=== PATIENT | male | born 1940 | race Caucasian/White ===

== ENCOUNTER → 2017-03-10 | Outpatient (CLI) | payer MEDICARE, BC ==
[~2017-03-10] MED LIST: ASPI81CH6 CHEW; METO50TA PO; OMEP40CA2 PO
[2017-03-10 13:46] LABS: AUTOMATED NEUTROPHIL # 3.7 TH/MM3 (1.8-7.7); BASOPHIL % 0.4 % (0.0-2.0); EOSINOPHIL # 0.1 TH/MM3 (0-0.4); EOSINOPHIL % 1.1 % (0.0-4.0); HEMATOCRIT 42.8 % (39.0-51.0); HEMOGLOBIN 14.4 GM/DL (13.0-17.0); LYMPH % 30.5 % (9.0-44.0); MEAN CELL VOLUME 86.9 FL (80.0-100.0); MEAN CORPUSCULAR HEMOGLOBIN 29.2 PG (27.0-34.0); MEAN CORPUSCULAR HGB CONC 33.6 % (32.0-36.0); MONO % 11.9 % (0.0-8.0); MONOCYTE # 0.8 TH/MM3 (0-0.9); NEUT % 56.1 % (16.0-70.0); PLATELET COUNT 143 TH/MM3 (150-450); RED BLOOD COUNT 4.93 MIL/MM3 (4.50-5.90); RED CELL DISTRIBUTION WIDTH 14.9 % (11.6-17.2); WHITE BLOOD COUNT 6.6 TH/MM3 (4.0-11.0)
[2017-03-10 14:08] LABS: ALBUMIN 3.9 GM/DL (3.4-5.0); ALT (GPT) 29 U/L (12-78); AST (GOT) 21 U/L (15-37); BICARBONATE 32.5 MEQ/L (21.0-32.0); BLOOD UREA NITROGEN 27 MG/DL (7-18); CALCIUM 9.3 MG/DL (8.5-10.1); CHLORIDE 103 MEQ/L (98-107); CHOLESTEROL 194 MG/DL (120-200); CREATININE 0.83 MG/DL (0.60-1.30); GLOMERULAR FILTRATION RATE 90 ML/MIN (>89); GLUCOSE,FASTING 99 MG/DL (74-99); SODIUM (NA) 140 MEQ/L (136-145)
[2017-03-10 14:10] LABS: ALKALINE PHOSPHATASE 74 U/L (45-117); CHOLESTEROL/ HDL RATIO 2.14 RATIO; HDL CHOLESTEROL 90.5 MG/DL (40.0-60.0); LDL CHOLESTEROL 95 MG/DL (0-99); TOTAL BILIRUBIN ADULT 0.5 MG/DL (0.2-1.0); TOTAL PROTEIN 7.8 GM/DL (6.4-8.2); TRIGLYCERIDES 44 MG/DL (42-150)
[2017-03-10 16:58] LABS: HEMOGLOBIN A1C 6.3 % (4.3-6.0)
== END ==
LOC: PLAB 11:21
PROVIDERS: ATTEND Family Medicine
DX: K21.9 Gastro-esophageal reflux disease without esophagitis (principal); I10 Essential (primary) hypertension; R73.9 Hyperglycemia, unspecified; Z12.5 Encounter for screening for malignant neoplasm of prostate
CPT/HCPCS: 36415; 80053; 80061; 82306; 83036; 85025; G0103

== ENCOUNTER 2017-09-03 14:27 | Inpatient (IN) ==
[2017-09-03] MEDS ORDERED: Acetaminophen 325 MG Tablet PO ONE (16:37)
[2017-09-03 17:08] LABS: Baso # (Auto) 0.1 th/mm3 (0.0-0.2); Baso % (Auto) 0.3 % (0.0-2.0); Eos % (Auto) 0.2 % (0.0-4.0); Hematocrit 39.4 % (39.0-51.0); Hemoglobin 13.5 gm/dL (13.0-17.0); Lymph # (Auto) 1.7 th/mm3 (1.0-4.8); Lymph % (Auto) 8.8 % (9.0-44.0); Mean Corpuscular HGB Conc 34.3 % (32.0-36.0); Mean Corpuscular Hemoglobin 29.6 pg (27.0-34.0); Mean Corpuscular Volume 86.4 fL (80.0-100.0); Mean Platelet Volume 9.8 fL (7.0-11.0); Mono # (Auto) 1.7 th/mm3 (0.0-0.9); Mono % (Auto) 8.6 % (0.0-8.0); Neut # (Auto) 16.1 th/mm3 (1.8-7.7); Neut % (Auto) 82.1 % (16.0-70.0); Platelet Count 175 th/mm3 (150-450); Red Blood Count 4.56 mil/mm3 (4.50-5.90); Red Cell Distribution Width 14.6 % (11.6-17.2); White Blood Count 19.6 th/mm3 (4.0-11.0)
--- NOTE | 2017-09-03 17:08 | ED ---
HPI General Chief complaint: Silver Buffer Problem Stated complaint: possible infection Right foot Time Seen by Provider: 09/03/17 16:13 Source: patient Mode of arrival: ambulatory Limitations: no limitations History of Present Illness HPI narrative: 77-year-old male presents emergency department for evaluation of fever and nausea started yesterday. His assists with a history. states that patient remained in bed this morning after she returned from tenriism and she became concerned. Patient had a foot surgery [address] Esposito and they were advised to return to the emergency department if he develops a fever. Patient had a joint replacement for "arthritis". Since yesterday, patient reports a subjective fever and urinary frequency. Says he has been urinating about every hour. He denies chest pain, shortness breath, abdominal pain, and vomiting, diarrhea, constipation. He says that he was placed on antibiotics for his foot and yesterday was the last dose. He says this was a "Z-Antony" and proceeds to describe the prednisone Medrol dose pack. Says he took a full 6 day course. His medical history significant for hypertension. Denies cardiac or pulmonary issues. Related Data Home Medications Medication Instructions Recorded Confirmed Aspir-81 1 tab PO DAILY 09/03/17 09/03/17 Lantoprost 09/03/17 metoprolol succinate 50 mg PO BID 09/03/17 09/03/17 omeprazole 40 mg PO DAILY 09/03/17 09/03/17 Allergies Allergy/AdvReac Type Severity Reaction Status Date / Time clindamycin Allergy Mild Unverified 11/16/16 11:00 penicillin G Allergy Mild rash Unverified 11/16/16 11:00 Review of Systems Except as stated in HPI: all other systems reviewed are negative PMFSH Medical History Medical History Hypertension (Acute) Social History Social History Substance History: No History of Abuse Second Hand Smoke Exposure: No Smoking Status: Never smoker How Often Do You Have a Drink Containing Alcohol: 4 or more times a week Recent Travel in [facility] within the Last 8 Weeks: No Recent Out of Country Travel within the Last 8 Weeks: No Immunization History Tetanus Immunization: Unsure Hx Influenza Vaccine This Season: Yes Exam Narrative Exam Narrative: GENERAL: Well-developed well-nourished in no apparent distress, resting comfortably but SKIN: Focused skin assessment warm/dry. Left foot- sutures in place without obvious dehiscence, no exudate or discharge , mild erythema surrounding the sutures without evidence of cellulitis. Bounding pedal pulses. Neurovascularly intact HEAD: Atraumatic. Normocephalic. EYES: Pupils equal and round. No scleral icterus. No injection or drainage. ENT: No nasal bleeding or discharge. Mucous membranes pink and moist. NECK: Trachea midline. No JVD. No lymphadenopathy CARDIOVASCULAR: Regular rate and rhythm. No murmur appreciated. RESPIRATORY: No accessory muscle use. Clear to auscultation. Breath sounds equal bilaterally. GASTROINTESTINAL: Abdomen soft, non-tender, nondistended. Hepatic and splenic margins not palpable. No CVA tenderness. MUSCULOSKELETAL: No obvious deformities. No clubbing. No cyanosis. No edema. Homans is negative bilaterally NEUROLOGICAL: Awake and alert. No obvious cranial nerve deficits. Motor grossly within normal limits. Normal speech. PSYCHIATRIC: Appropriate mood and affect; insight and judgment normal. Course Reevaluation(s) Reevaluation #1: patient updated and agrees to admit Consultations Consultation #1: dr whaley agrees to admit Initial Documented Vital Signs Temperature 99.3 F 09/03/17 14:34 Pulse Rate 70 09/03/17 14:34 Respiratory Rate 15 09/03/17 14:34 Blood Pressure 127/58 L 09/03/17 14:34 Pulse Oximetry 96 09/03/17 14:34 Last Documented Vital Signs Temperature 101 F H 09/03/17 18:04 Pulse Rate 64 09/03/17 16:40 Respiratory Rate 16 09/03/17 16:40 Blood Pressure 137/58 L 09/03/17 16:40 Pulse Oximetry 96 09/03/17 17:05 Medical Decision Making BERNA Attestation BERNA supervised visit: Yes Attestation: I, Dr. mora, have reviewed the advance practice practitioner's documentation and am in agreement, met with the patient face to face, made the diagnosis, and the medical decision making was done by me. *My assessment and Findings: 77-year-old male with fever and dysuria with recent surgery. Postop wound appears to be without significant signs of infection. Workup reveals leukocytosis with fever and UTI. He is in sepsis without sepsis shock. He was given Zosyn and will be monitored overnight. MDM Narrative Medical decision making narrative: 77-year-old male presents emergency department for evaluation of fever and nausea that started yesterday. Patient reports frequency of urination every 60 minutes since yesterday. Patient denies significant pain to the surgery site. Says he recently completed a course of "antibiotics" and his description was that of a Medrol Dosepak. Says his course was 6 days in duration. Says he has a follow-up with Dr. Esposito on Monday for possible suture removal. Vital signs demonstrate fever of 101, HR 60-70. Labs and imaging studies ordered for further evaluation. WBC 19.6 Lactic 1.7 UA consistent with UTI Xrays stable. Ordered antibiotics for urinary tract infection, possible developing urosepsis. I discussed this case with my attending who recommended admission for observation. Pt has fever, UTI, and leukocytosis. Questionable recent completion of antibiotics. Differential Diagnosis Differential Diagnosis: Urinary tract infection, sepsis, postop wound infection Lab Data Lab results reviewed: Yes I reviewed the patient's lab results. Result diagrams: 09/03/17 16:45 09/03/17 16:45 Lab Results 09/03/17 09/03/17 09/03/17 Range/Units 16:30 16:45 16:45 WBC 19.6 H (4.0-11.0) th/mm3 RBC 4.56 (4.50-5.90) mil/mm3 Hgb 13.5 (13.0-17.0) gm/dL Hct 39.4 (39.0-51.0) % MCV 86.4 (80.0-100.0) fL MCH 29.6 (27.0-34.0) pg MCHC 34.3 (32.0-36.0) % RDW 14.6 (11.6-17.2) % Plt Count 175 (150-450) th/mm3 MPV 9.8 (7.0-11.0) fL Neut % (Auto) 82.1 H (16.0-70.0) % Lymph % (Auto) 8.8 L (9.0-44.0) % [place] % (Auto) 8.6 H (0.0-8.0) % Eos % (Auto) 0.2 (0.0-4.0) % Baso % (Auto) 0.3 (0.0-2.0) % Neut # (Auto) 16.1 H (1.8-7.7) th/mm3 Lymph # (Auto) 1.7 (1.0-4.8) th/mm3 [place] # (Auto) 1.7 H (0.0-0.9) th/mm3 Eos # (Auto) 0.0 (0.0-0.4) th/mm3 Baso # (Auto) 0.1 (0.0-0.2) th/mm3 WBC Differential . Differential Comment Auto diff final PT (9.8-11.6) sec INR Ratio APTT (24.3-30.1) sec Sodium 136 (136-145) meq/L Potassium 4.1 (3.5-5.1) meq/L Chloride 100 (98-107) meq/L Carbon Dioxide 31.3 (21.0-32.0) meq/L Anion Gap 5 (5-15) meq/L BUN 22 H (7-18) mg/dL Creatinine 1.12 (0.60-1.30) mg/dL Estimated GFR 64 L (>89) mL/min Random Glucose 130 H (74-106) mg/dL Lactic Acid (0.4-2.0) mmol/L Calcium 8.5 (8.5-10.1) mg/dL Urine Color Amairani (Yellw/Straw) Urine Clarity Cloudy H (Clear) Urine pH 5.0 (5.0-8.5) Ur Specific [place] 1.025 (1.002-1.035) Urine Protein 100 H (Neg-Trace) mg/dL Urine Glucose (UA) Negative (Negative) mg/dL Urine Ketones Negative (Negative) mg/dL Urine Occult Blood Large H (Negative) Urine Nitrate Positive H (Negative) Urine Bilirubin Negative (Negative) Urine Urobilinogen Less than 2 (Less than 2) mg/dL Ur Leukocyte Esterase Large H (Negative) Urine RBC 75 H (0-3) /hpf Urine WBC (0-5) /hpf Urine WBC Clumps Few H (None) Ur Squamous Epith Cells <1 (0-5) /hpf Urine Bacteria Moderate H (None) /hpf Hyaline Casts 7 (0-3) /lpf Urine Mucus Few H (Occasional) /lpf Micro UA Comment Culture indicated Urine Culture Comments Culture indicated 09/03/17 09/03/17 Range/Units 16:45 16:55 WBC (4.0-11.0) th/mm3 RBC (4.50-5.90) mil/mm3 Hgb (13.0-17.0) gm/dL Hct (39.0-51.0) % MCV (80.0-100.0) fL MCH (27.0-34.0) pg MCHC (32.0-36.0) % RDW (11.6-17.2) % Plt Count (150-450) th/mm3 MPV (7.0-11.0) fL Neut % (Auto) (16.0-70.0) % Lymph % (Auto) (9.0-44.0) % [place] % (Auto) (0.0-8.0) % Eos % (Auto) (0.0-4.0) % Baso % (Auto) (0.0-2.0) % Neut # (Auto) (1.8-7.7) th/mm3 Lymph # (Auto) (1.0-4.8) th/mm3 [place] # (Auto) (0.0-0.9) th/mm3 Eos # (Auto) (0.0-0.4) th/mm3 Baso # (Auto) (0.0-0.2) th/mm3 WBC Differential Differential Comment PT 11.5 (9.8-11.6) sec INR 1.1 Ratio APTT 26.5 (24.3-30.1) sec Sodium (136-145) meq/L Potassium (3.5-5.1) meq/L Chloride (98-107) meq/L Carbon Dioxide (21.0-32.0) meq/L Anion Gap (5-15) meq/L BUN (7-18) mg/dL Creatinine (0.60-1.30) mg/dL Estimated GFR (>89) mL/min Random Glucose (74-106) mg/dL Lactic Acid 1.7 (0.4-2.0) mmol/L Calcium (8.5-10.1) mg/dL Urine Color (Yellw/Straw) Urine Clarity (Clear) Urine pH (5.0-8.5) Ur Specific [place] (1.002-1.035) Urine Protein (Neg-Trace) mg/dL Urine Glucose (UA) (Negative) mg/dL Urine Ketones (Negative) mg/dL Urine Occult Blood (Negative) Urine Nitrate (Negative) Urine Bilirubin (Negative) Urine Urobilinogen (Less than 2) mg/dL Ur Leukocyte Esterase (Negative) Urine RBC (0-3) /hpf Urine WBC (0-5) /hpf Urine WBC Clumps (None) Ur Squamous Epith Cells (0-5) /hpf Urine Bacteria (None) /hpf Hyaline Casts (0-3) /lpf Urine Mucus (Occasional) /lpf Micro UA Comment Urine Culture Comments Imaging Data Attestation: I personally reviewed and interpreted this imaging study as follows : Radiologist's impression: Foot X-Ray 09/03/17 16:37 CONCLUSION: No acute bony abnormalities. Previous joint replacement at the second MTP. 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 Discharge Plan Discharge Disposition Patient Disposition: 30 Still Patient Discharge Condition Condition: Stable Discharge Details Diagnosis: Acute UTI, Sepsis Physicians Team ED Provider: Holli Mora ED Midlevel Provider: Kellen Gallo Primary Care Provider: Minal Rainey Attending Provider: Feli Whaley Status ED Status: Admitted Observation Patient
[2017-09-03 17:17] LABS: Bacteria,Urine Moderate /hpf; Bilirubin,Urine Negative (Negative); Clarity,Urine Cloudy (Clear); Color,Urine Amber (Yellw/Straw); Glucose,Urine (UA) Negative (Negative); Hyaline Casts,Urine 7 /lpf (0-3); Leukocyte Esterase,Urine Large (Negative); Mucus,Urine Few /lpf (Occasional); Nitrite,Urine Positive (Negative); Specific Gravity,Urine 1.025 (1.002-1.035); Squamous Epithelial Cell,Urine <1 /hpf (0-5)
[2017-09-03 17:22] LABS: Calcium 8.5 mg/dL (8.5-10.1); Carbon Dioxide 31.3 meq/L (21.0-32.0); Potassium 4.1 meq/L (3.5-5.1)
--- NOTE | 2017-09-03 17:22 | XR ---
EXAM DATE: 09/03/2017 5:02 PM EDT AGE/SEX: 77 years / Male INDICATIONS: Post op. Possible infection. CLINICAL DATA: This is the patient's subsequent encounter. Patient reports that signs and symptoms h ave been present for 4 - 6 days and indicates a pain score of 7/10. MEDICAL/SURGICAL HISTORY: None. None. COMPARISON: No prior exams available for comparison. FINDINGS: No acute fracture identified. There is a joint prosthesis at the second metatarsophalangeal joint. No bony destructive changes. No other radiopaque foreign bodies. CONCLUSION: No acute bony abnormalities. Previous joint replacement at the second MTP. Mild to moderate osteoarth ritis in the remainder of the right foot. Electronically signed by: Elias Hensley MD 09/03/2017 5:20 PM EDT
[2017-09-03] MEDS ORDERED: Sod Chloride 0.9% Inj 1,000 ML IV.SIG ONE (17:37)
[2017-09-03 17:41] LABS: Activated Partial Thrombo Time 26.5 sec (24.3-30.1); INR 1.1 Ratio; Prothrombin Time 11.5 sec (9.8-11.6)
[2017-09-03] MEDS ORDERED: Bisacodyl 10 MG Supp RECTAL PRN (20:29)
[2017-09-03] MEDS ORDERED: Temazepam 15 MG Capsule PO PRN (20:29)
[2017-09-03] MEDS: Senna/Docusate Sodium 8.6/50 MG Tablet PO SCH (20:50)
[2017-09-03] MEDS: Heparin - SQ 10,000 UNITS/ML Vial SQ SCH (20:51)
[2017-09-03] MEDS: Sod Chloride 0.9% Inj 1,000 ML IV.CONT SCH (20:51)
--- NOTE | 2017-09-03 22:24 | P.HP ---
History of Present Illness Service: [facility] Primary Care Physician: Minal Rainey MD History of Present Illness: 77-year-old male with a past medical history significant for hypertension and GERD presents to the emergency department for evaluation of a possible foot infection. 2 weeks ago, the patient had an artificial MCP joint in the right second digit and he has been concerned that he had an infection because he had nausea and vomiting this morning with a fever to 101 today. He also reports urinary frequency and burning with urination. He denies any foot pain. He is status post Medrol Dosepak which he finished on Monday. He has a leukocytosis however this is likely secondary to steroid use. UA consistent with UTI. He denies any chest pain or shortness of breath. No cough. No abdominal pain. No lateralizing signs/symptoms. Review of Systems All other systems reviewed negative except as stated in HPI [facility] - History History Provided By: Patient - Medical History Medical History: Medical History (Last Updated 09/03/17 @ 18:47 by Holli Mora MD) Hypertension - Surgical History Surgical History: Surgical History (Last Updated 09/03/17 @ 22:16 by Elizabeth Garza MD) H/O foot surgery H/O neck surgery H/O thumb surgery History of cholecystectomy History of cochlear implant History of rotator cuff surgery - Family History Family History: Family History (Last Updated 09/03/17 @ 22:17 by Elizabeth Garza MD) Other No family history of cardiac disease - Tobacco History Second Hand Smoke Exposure: No Smoking Status: Never smoker - Alcohol History How Often Do You Have a Drink Containing Alcohol: 4 or more times a week - Substance Use History Substance History: No History of Abuse - Travel History Recent Travel in the [place] Within the Last 8 Weeks: No Recent Travel Out of the Country Within the Last 8 Weeks: No - Immunization History Tetanus Immunization: Unsure Hx Influenza Vaccine This Season: Yes Medications and Allergies Active Medications: Active Medications Acetaminophen (Tylenol) 650 mg PO Q4H PRN PRN Reason: Temp > 100.4 Al Hydroxide/Mg Hydroxide (Milk Of Magnesia Liq) 30 ml PO Q12H PRN PRN Reason: Mild Constipation Bisacodyl (Dulcolax Supp) 10 mg RECTAL DAILY PRN PRN Reason: SEVERE CONSITIPATION Heparin Sodium (Porcine) (Heparin Inj) 5,000 units SQ Q8H [facility] Last Admin: 09/03/17 20:51 Dose: 5,000 units Ceftriaxone Sodium 1,000 mg/ (Sodium Chloride) 100 mls @ 200 mls/hr IV.SIG Q24H [facility] Last Admin: 09/03/17 20:51 Dose: 200 mls/hr Sodium Chloride (Ns Inj) 1,000 mls @ 100 mls/hr IV.CONT .Q10H [facility] Last Admin: 09/03/17 20:51 Dose: 100 mls/hr Lactulose (Lactulose Liq) 30 ml PO DAILY PRN PRN Reason: SEVERE CONSITIPATION Metoprolol Succinate (Toprol Xl) 50 mg PO BID [facility] Last Admin: 09/03/17 20:51 Dose: 50 mg Ondansetron HCl (Zofran Odt) 4 mg PO Q6H PRN PRN Reason: NAUSEA OR VOMITING Pantoprazole Sodium (Protonix) 40 mg PO DAILY [facility] Senna/Docusate Sodium (Sharri-Colace) 1 tab PO BID [facility] Last Admin: 09/03/17 20:50 Dose: 1 tab Sennosides (Senokot) 17.2 mg PO Q12H PRN PRN Reason: Moderate Constipation Temazepam (Restoril) 15 mg PO HS PRN PRN Reason: INSOMNIA Allergies Allergy/AdvReac Type Severity Reaction Status Date / Time clindamycin Allergy Mild Unverified 11/16/16 11:00 penicillin G Allergy Mild rash Unverified 11/16/16 11:00 Home Medications Medication Instructions Recorded Confirmed Type Aspir-81 1 tab PO DAILY 09/03/17 09/03/17 History Lantoprost 09/03/17 History metoprolol succinate 50 mg PO BID 09/03/17 09/03/17 History omeprazole 40 mg PO DAILY 09/03/17 09/03/17 History Exam Vital signs: Vital Signs 09/03/17 14:34 09/03/17 16:40 09/03/17 17:05 Temperature 99.3 F Pulse Rate 70 64 Respiratory Rate 15 16 Blood Pressure 127/58 L 137/58 L Pulse Oximetry 96 96 96 09/03/17 18:04 09/03/17 19:30 Temperature 101 F H 98.2 F Pulse Rate 68 Respiratory Rate 16 Blood Pressure 153/67 H Pulse Oximetry Intake & Output 09/03/17 09/03/1718 06:59 18:59 06:59 Output Total 600 / 600 Balance -600 / -600 Weight 97.522 kg Output: Urine 600 / 600 Narrative: Gen.: No acute distress Head: Normocephalic. Atraumatic. EENT: Pupils equal round and reactive to light. Nose without drainage. Airway intact. Throat without injection. Cardiovascular: Regular rate and rhythm. No murmurs, rubs or gallops. Respiratory: Lungs clear to auscultation bilaterally. No wheezes or rhonchi. Abdomen: Soft, nontender, nondistended. No peritoneal signs. Musculoskeletal: No gross deformities. No edema. Skin: No obvious rashes or erythema. Suture line on dorsum of the foot between first and second digits with incision clean/dry/intact and no active signs of infection. Neuro: Sensory and motor grossly intact. Cranial nerves II through XII grossly intact. Results - Labs CBC & Chem 7: 09/03/17 16:45 09/03/17 16:45 Labs: Laboratory Results - last 24 hr 09/03/17 09/03/17 09/03/17 16:30 16:45 16:45 WBC 19.6 H RBC 4.56 Hgb 13.5 Hct 39.4 MCV 86.4 MCH 29.6 MCHC 34.3 RDW 14.6 Plt Count 175 MPV 9.8 Neut % (Auto) 82.1 H Lymph % (Auto) 8.8 L [place] % (Auto) 8.6 H Eos % (Auto) 0.2 Baso % (Auto) 0.3 Neut # (Auto) 16.1 H Lymph # (Auto) 1.7 [place] # (Auto) 1.7 H Eos # (Auto) 0.0 Baso # (Auto) 0.1 WBC Differential . Differential Comment Auto diff final PT INR APTT Sodium 136 Potassium 4.1 Chloride 100 Carbon Dioxide 31.3 Anion Gap 5 BUN 22 H Creatinine 1.12 Estimated GFR 64 L Random Glucose 130 H Lactic Acid Calcium 8.5 Urine Color Amairani Urine Clarity Cloudy H Urine pH 5.0 Ur Specific [place] 1.025 Urine Protein 100 H Urine Glucose (UA) Negative Urine Ketones Negative Urine Occult Blood Large H Urine Nitrate Positive H Urine Bilirubin Negative Urine Urobilinogen Less than 2 Ur Leukocyte Esterase Large H Urine RBC 75 H Urine WBC Urine WBC Clumps Few H Ur Squamous Epith Cells <1 Urine Bacteria Moderate H Hyaline Casts 7 Urine Mucus Few H Micro UA Comment Culture indicated Urine Culture Comments Culture indicated 09/03/17 09/03/17 16:45 16:55 WBC RBC Hgb Hct MCV MCH MCHC RDW Plt Count MPV Neut % (Auto) Lymph % (Auto) [place] % (Auto) Eos % (Auto) Baso % (Auto) Neut # (Auto) Lymph # (Auto) [place] # (Auto) Eos # (Auto) Baso # (Auto) WBC Differential Differential Comment PT 11.5 INR 1.1 APTT 26.5 Sodium Potassium Chloride Carbon Dioxide Anion Gap BUN Creatinine Estimated GFR Random Glucose Lactic Acid 1.7 Calcium Urine Color Urine Clarity Urine pH Ur Specific [place] Urine Protein Urine Glucose (UA) Urine Ketones Urine Occult Blood Urine Nitrate Urine Bilirubin Urine Urobilinogen Ur Leukocyte Esterase Urine RBC Urine WBC Urine WBC Clumps Ur Squamous Epith Cells Urine Bacteria Hyaline Casts Urine Mucus Micro UA Comment Urine Culture Comments - Imaging Impressions Foot X-Ray 09/03/17 16:37 CONCLUSION: No acute bony abnormalities. Previous joint replacement at the second MTP. 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 Caprini VTE Risk Assessment Caprini VTE Risk Assessment: Moderate/High Risk (score >= 2) Caprini Risk Assessment Model: Point Value = 1 Point Value = 2 Point Value = 3 Point Value = 5 Age 41-60 Minor surgery BMI > 25 kg/m2 Swollen legs Varicose veins or History of unexplained or recurrent spontaneous Oral contraceptives or hormone replacement Sepsis (< 1 month) Serious lung disease, including pneumonia (< 1 month) Abnormal pulmonary function Acute myocardial infarction Congestive heart failure (< 1 month) History of inflammatory bowel disease Medical patient at bed rest Age 61-74 Arthroscopic surgery Major open surgery (> 45 min) Laparoscopic surgery (> 45 min) Malignancy Confined to bed (> 72 hours) Immobilizing plaster cast Central venous access Age >= 75 History of VTE Family history of VTE Factor V Leiden Prothrombin [id number] Lupus anticoagulant Anticardiolipin antibodies Elevated serum homocysteine Heparin-induced thrombocytopenia Other congenital or acquired thrombophilia Stroke (< 1 month) Elective arthroplasty Hip, pelvis, or leg fracture Acute spinal cord injury (< 1 month) Prophylaxis Regimen: Total Risk Factor Score Risk Level Prophylaxis Regimen 0-1 Low Early ambulation 2 Moderate Order ONE of the following: *Sequential Compression Device (SCD) *Heparin 5000 units SQ BID 3-4 Higher Order ONE of the following medications: *Heparin 5000 units SQ TID *Enoxaparin/Lovenox 40 mg SQ daily (WT < 150 kg, CrCl > 30 mL/min) *Enoxaparin/Lovenox 30 mg SQ daily (WT < 150 kg, CrCl > 10-29 mL/min) *Enoxaparin/Lovenox 30 mg SQ BID (WT < 150 kg, CrCl > 30 mL/min) AND/OR *Sequential Compression Device (SCD) 5 or more Highest Order ONE of the following medications: *Heparin 5000 units SQ TID (Preferred with Epidurals) *Enoxaparin/Lovenox 40 mg SQ daily (WT < 150 kg, CrCl > 30 mL/min) *Enoxaparin/Lovenox 30 mg SQ daily (WT < 150 kg, CrCl > 10-29 mL/min) *Enoxaparin/Lovenox 30 mg SQ BID (WT < 150 kg, CrCl > 30 mL/min) AND *Sequential Compression Device (SCD) Assessment and Plan - Plan Assessment/plan: 1. Urinary tract infection/sepsis UA consistent with UTI Urine cultures pending Blood cultures pending Rocephin 2. Hypertension/GERD Continue home medications FEN Heart healthy diet Electrolytes: Monitor and replete as needed Heparin
[2017-09-04 02:30] LABS: Baso % (Auto) 0.1 % (0.0-2.0); Hematocrit 38.9 % (39.0-51.0); Hemoglobin 13.2 gm/dL (13.0-17.0); Lymph # (Auto) 0.9 th/mm3 (1.0-4.8); Lymph % (Auto) 5.1 % (9.0-44.0); Mean Corpuscular Hemoglobin 29.5 pg (27.0-34.0); Mean Platelet Volume 9.7 fL (7.0-11.0); Mono # (Auto) 1.9 th/mm3 (0.0-0.9); Mono % (Auto) 10.4 % (0.0-8.0); Neut % (Auto) 84.4 % (16.0-70.0); Platelet Count 160 th/mm3 (150-450); Red Blood Count 4.47 mil/mm3 (4.50-5.90); Red Cell Distribution Width 14.5 % (11.6-17.2); White Blood Count 17.8 th/mm3 (4.0-11.0)
[2017-09-04 02:50] LABS: Calcium 8.6 mg/dL (8.5-10.1); Carbon Dioxide 28.4 meq/L (21.0-32.0)
[2017-09-04] MEDS: Heparin - SQ 10,000 UNITS/ML Vial SQ SCH ×3 (06:00→21:52)
[2017-09-04] MEDS: Sod Chloride 0.9% Inj 1,000 ML IV.CONT SCH (06:01)
[2017-09-04] MEDS: Senna/Docusate Sodium 8.6/50 MG Tablet PO SCH ×2 (08:31→21:53)
--- NOTE | 2017-09-04 12:57 | P.PNIM ---
Subjective Interval history: Patient reports he is feeling much better. Dysuria resolved. Afebrile. Physical Exam Vital signs: Vital Signs 09/03/17 14:34 09/03/17 16:40 09/03/17 17:05 Temperature 99.3 F Pulse Rate 70 64 Respiratory Rate 15 16 Blood Pressure 127/58 L 137/58 L Pulse Oximetry 96 96 96 09/03/17 18:04 09/03/17 19:30 09/04/17 00:00 Temperature 101 F H 98.2 F 98.7 F Pulse Rate 68 85 Respiratory Rate 16 20 Blood Pressure 153/67 H 140/65 Pulse Oximetry 93 L 09/04/17 00:20 09/04/17 08:00 Temperature 99.6 F Pulse Rate 84 70 Respiratory Rate 18 Blood Pressure 162/70 H Pulse Oximetry 94 L Intake & Output 09/03/17 09/04/17 09/04/17 18:59 06:59 18:59 Intake Total 1240 / 1240 Output Total 650 / 650 Balance 590 / 590 Weight 97.522 kg Intake: IV 1000 / 1000 NS Inj 1,000 ML @ 100 mls/hr IV 1000 / 1000 .CONT .Q10H [facility] Rx#:[id number] Oral 240 / 240 Output: Urine 600 / 600 Emesis 50 / 50 Other: # Voids 1 Narrative: GENERAL: This is a well-nourished, well-developed patient, in no apparent distress. CARDIOVASCULAR: Normal rate and regular rhythm without murmurs, gallops, or rubs. RESPIRATORY: Good respiratory efforts. Breath sounds equal and clear to auscultation bilaterally. GASTROINTESTINAL: Abdomen soft, non-tender, non-distended. Normal active bowel sounds MUSCULOSKELETAL: Extremities without cyanosis, or edema. NEURO: Alert & Oriented x4 to person, place, time, situation. Moves all ext x4 PSYCH: Appropriate mood and affect. Results - Labs CBC & Chem 7: 09/04/17 02:00 09/04/17 02:00 Laboratory Results - last 24 hr 09/03/17 09/03/17 09/03/17 16:30 16:45 16:45 WBC 19.6 H RBC 4.56 Hgb 13.5 Hct 39.4 MCV 86.4 MCH 29.6 MCHC 34.3 RDW 14.6 Plt Count 175 MPV 9.8 Neut % (Auto) 82.1 H Lymph % (Auto) 8.8 L [place] % (Auto) 8.6 H Eos % (Auto) 0.2 Baso % (Auto) 0.3 Neut # (Auto) 16.1 H Lymph # (Auto) 1.7 [place] # (Auto) 1.7 H Eos # (Auto) 0.0 Baso # (Auto) 0.1 WBC Differential . Differential Comment Auto diff final PT INR APTT Sodium 136 Potassium 4.1 Chloride 100 Carbon Dioxide 31.3 Anion Gap 5 BUN 22 H Creatinine 1.12 Estimated GFR 64 L Random Glucose 130 H Lactic Acid Calcium 8.5 Urine Color [place] Urine Clarity Cloudy H Urine pH 5.0 Ur Specific [place] 1.025 Urine Protein 100 H Urine Glucose (UA) Negative Urine Ketones Negative Urine Occult Blood Large H Urine Nitrate Positive H Urine Bilirubin Negative Urine Urobilinogen Less than 2 Ur Leukocyte Esterase Large H Urine RBC 75 H Urine WBC Urine WBC Clumps Few H Ur Squamous Epith Cells <1 Urine Bacteria Moderate H Hyaline Casts 7 Urine Mucus Few H Micro UA Comment Culture indicated Urine Culture Comments Culture indicated 09/03/17 09/03/17 09/04/17 16:45 16:55 02:00 WBC 17.8 H RBC 4.47 L Hgb 13.2 Hct 38.9 L MCV 87.0 MCH 29.5 MCHC 34.0 RDW 14.5 Plt Count 160 MPV 9.7 Neut % (Auto) 84.4 H Lymph % (Auto) 5.1 L [place] % (Auto) 10.4 H Eos % (Auto) 0.0 Baso % (Auto) 0.1 Neut # (Auto) 15.0 H Lymph # (Auto) 0.9 L [place] # (Auto) 1.9 H Eos # (Auto) 0.0 Baso # (Auto) 0.0 WBC Differential . Differential Comment Auto diff final PT 11.5 INR 1.1 APTT 26.5 Sodium Potassium Chloride Carbon Dioxide Anion Gap BUN Creatinine Estimated GFR Random Glucose Lactic Acid 1.7 Calcium Urine Color Urine Clarity Urine pH Ur Specific [place] Urine Protein Urine Glucose (UA) Urine Ketones Urine Occult Blood Urine Nitrate Urine Bilirubin Urine Urobilinogen Ur Leukocyte Esterase Urine RBC Urine WBC Urine WBC Clumps Ur Squamous Epith Cells Urine Bacteria Hyaline Casts Urine Mucus Micro UA Comment Urine Culture Comments 09/04/17 02:00 WBC RBC Hgb Hct MCV MCH MCHC RDW Plt Count MPV Neut % (Auto) Lymph % (Auto) [place] % (Auto) Eos % (Auto) Baso % (Auto) Neut # (Auto) Lymph # (Auto) [place] # (Auto) Eos # (Auto) Baso # (Auto) WBC Differential Differential Comment PT INR APTT Sodium 139 Potassium 4.0 Chloride 103 Carbon Dioxide 28.4 Anion Gap 8 BUN 23 H Creatinine 0.95 Estimated GFR 77 L Random Glucose 115 H Lactic Acid Calcium 8.6 Urine Color Urine Clarity Urine pH Ur Specific [place] Urine Protein Urine Glucose (UA) Urine Ketones Urine Occult Blood Urine Nitrate Urine Bilirubin Urine Urobilinogen Ur Leukocyte Esterase Urine RBC Urine WBC Urine WBC Clumps Ur Squamous Epith Cells Urine Bacteria Hyaline Casts Urine Mucus Micro UA Comment Urine Culture Comments - Imaging Impressions Foot X-Ray 09/03/17 16:37 CONCLUSION: No acute bony abnormalities. Previous joint replacement at the second MTP. 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 Assessment and Plan - Plan 77-year-old male admitted with sepsis secondary to UTI: Sepsis secondary to UTI: Urine growing gram-negative rods: -Continue Rocephin. Follow blood and urine cultures. -Volume status adequate. Discontinue IV fluid. Hypertension/GERD Continue home medications
[2017-09-05] MEDS: Heparin - SQ 10,000 UNITS/ML Vial SQ SCH (04:25)
[2017-09-05 05:03] LABS: Baso % (Auto) 0.3 % (0.0-2.0); Eos % (Auto) 0.3 % (0.0-4.0); Hematocrit 37.8 % (39.0-51.0); Hemoglobin 12.5 gm/dL (13.0-17.0); Lymph # (Auto) 1.8 th/mm3 (1.0-4.8); Lymph % (Auto) 16.7 % (9.0-44.0); Mean Corpuscular HGB Conc 33.2 % (32.0-36.0); Mean Corpuscular Hemoglobin 29.1 pg (27.0-34.0); Mean Corpuscular Volume 87.8 fL (80.0-100.0); Mean Platelet Volume 9.7 fL (7.0-11.0); Mono # (Auto) 1.6 th/mm3 (0.0-0.9); Mono % (Auto) 14.9 % (0.0-8.0); Neut # (Auto) 7.3 th/mm3 (1.8-7.7); Neut % (Auto) 67.8 % (16.0-70.0); Platelet Count 133 th/mm3 (150-450); Red Cell Distribution Width 14.7 % (11.6-17.2); White Blood Count 10.7 th/mm3 (4.0-11.0)
[2017-09-05] MEDS: Senna/Docusate Sodium 8.6/50 MG Tablet PO SCH ×2 (08:21→20:17)
--- NOTE | 2017-09-05 10:18 | P.PNIM ---
Subjective Interval history: Patient is having hematuria, fever this morning. He reports that he is feeling worse overall. Having dysuria. Nausea this morning. Physical Exam Vital signs: Vital Signs 09/04/17 12:00 09/04/17 16:00 09/04/17 20:00 Temperature 98.3 F 98.2 F 99.9 F H Pulse Rate 73 67 71 Respiratory Rate 18 18 18 Blood Pressure 132/64 142/67 H 133/76 Pulse Oximetry 94 L 94 L 95 09/05/17 00:00 09/05/17 04:00 09/05/17 08:00 Temperature 98.0 F 98.8 F 101.5 F H Pulse Rate 71 133 H 72 Respiratory Rate 18 20 17 Blood Pressure 158/72 H 132/63 134/77 Pulse Oximetry 95 92 L 95 Intake & Output 09/04/17 09/05/17 09/05/17 18:59 06:59 18:59 Intake Total 1800 / 1800 1100 / 1100 Output Total 800 / 800 950 / 950 Balance 1000 / 1000 -950 / -950 1100 / 1100 Intake: IV 1100 / 1100 Rocephin Inj 1,000 MG In NS Inj 100 / 100 100 ML @ 200 mls/hr IV.SIG Q24H [facility] Rx#:[id number] Oral 800 / 800 Other 1000 / 1000 Output: Urine 800 / 800 950 / 950 Other: Other Intake Source Saline Solution Date of Last Bowel Movement 09/03/17 Narrative: GENERAL: This is a well-nourished, well-developed patient, in no acute distress. CARDIOVASCULAR: Normal rate and regular rhythm without murmurs, gallops, or rubs. RESPIRATORY: Good respiratory efforts. Breath sounds equal and clear to auscultation bilaterally. GASTROINTESTINAL: Abdomen soft, non-tender, non-distended. Normal active bowel sounds MUSCULOSKELETAL: Extremities without cyanosis, or edema. NEURO: Alert & Oriented x4 to person, place, time, situation. Moves all ext x4 PSYCH: Appropriate mood and affect. Results - Labs CBC & Chem 7: 09/05/17 04:35 09/04/17 02:00 Laboratory Results - last 24 hr 09/03/17 09/05/17 16:30 04:35 WBC 10.7 RBC 4.30 L Hgb 12.5 L Hct 37.8 L MCV 87.8 MCH 29.1 MCHC 33.2 RDW 14.7 Plt Count 133 L MPV 9.7 Neut % (Auto) 67.8 Lymph % (Auto) 16.7 [place] % (Auto) 14.9 H Eos % (Auto) 0.3 Baso % (Auto) 0.3 Neut # (Auto) 7.3 Lymph # (Auto) 1.8 [place] # (Auto) 1.6 H Eos # (Auto) 0.0 Baso # (Auto) 0.0 WBC Differential . Differential Comment Auto diff final Urine Color Amairani Urine Clarity Cloudy H Urine pH 5.0 Ur Specific [place] 1.025 Urine Protein 100 H Urine Glucose (UA) Negative Urine Ketones Negative Urine Occult Blood Large H Urine Nitrate Positive H Urine Bilirubin Negative Urine Urobilinogen Less than 2 Ur Leukocyte Esterase Large H Urine RBC 75 H Urine WBC Urine WBC Clumps Few H Ur Squamous Epith Cells <1 Urine Bacteria Moderate H Hyaline Casts 7 Urine Mucus Few H Micro UA Comment Culture indicated Urine Culture Comments Culture indicated Microbiology 09/03/17 16:30 Clean Catch Urine Urine Culture - Final Escherichia coli Assessment and Plan - Assessment (1) Sepsis Code(s): A41.9 - Sepsis, unspecified organism Status: Acute (2) Hematuria Code(s): R31.9 - Hematuria, unspecified Status: Acute (3) Acute UTI Code(s): N39.0 - Urinary tract infection, site not specified Status: Acute - Plan 77-year-old male admitted with sepsis secondary to UTI: Sepsis secondary to UTI: Urine grew E. Coli: -Continue Rocephin. Follow blood cultures. -Continue IVF Hematuria: ?Related to UTI as above. He has had recurrent UTIs - Consult Urology - Monitor for clots - Obtain Renal, bladder ultrasound - Hold heparin he was getting for DVT prophylaxis. Hypertension/GERD Continue home medications GI prophylaxis: Stool softener PRN constipation. DVT PPx: SCDs, heparin on hold due to hematuria. (1) Sepsis Qualifiers: Sepsis type: sepsis due to unspecified organism Qualified Code(s): A41.9 - Sepsis, unspecified organism
--- NOTE | 2017-09-05 11:22 | US ---
EXAM DATE: 09/05/2017 10:26 AM EDT AGE/SEX: 77 years / Male INDICATIONS: Hematuria. CLINICAL DATA: This is the patient's initial encounter. Patient reports that signs and symptoms have been present for 1 week and indicates a pain score of 2/10. MEDICAL/SURGICAL HISTORY: Hypertension. Cholecystectomy. Foot surgery. Neck surgery. Thumb surg verna. Cochlear implant. Rotator cuff surgery. COMPARISON: [facility], CT INJECTION SI JOINT, UNILATERAL (CT GUIDED), 09/23/2016. . MEASUREMENTS: Right Kidney:__11.0 x 5.3 x 5.6 cm Left Kidney:__11.3 x 4.9 x 6.5 cm FINDINGS: Right Kidney: Normal echotexture and cortical thickness. No mass or hydronephrosis. Left Kidney: Normal echotexture and cortical thickness. No solid mass or hydronephrosis. A small cyst measuring 1 cm. Bladder: Within normal limits given the degree of distension. Other: None. CONCLUSION: 1. No renal calculi or solid masses. 2. Small simple cyst in left kidney. Electronically signed by: Bari Carrillo MD 09/05/2017 11:21 AM EDT
[2017-09-05] MEDS: Sodium Chloride 0.45 % Inj 1,000 ML IV.CONT SCH ×2 (11:27→20:13)
[2017-09-05] MEDS: Acetaminophen 325 MG Tablet PO PRN ×2 (12:40→20:16)
--- NOTE | 2017-09-05 17:56 | P.CONURO ---
History of Present Illness Service: urology Consult date: 09/05/17 Reason for Consult: uti, hematuria Primary Care Provider: Minal Rainey MD Chief Complaint: uti, hematuria History of Present Illness: 77yo male admitted for UTI and hematuria seen in consultation. Patient reports he has had several episodes of signficant hematuria as well dysuria. Patient reports the hematuria has been intermittent. He has had fevers as high as 101 since admit. He denies any significant lower urinary tract symptoms, however was following with urology up [place] prior to moving here. He is currently doing well, reports no issues voiding at this time. Hematuria appears to be clearing up. Review of Systems All other systems reviewed negative except as stated in HPI Constitutional: Denies anorexia, Denies chills Eyes: Denies double vision Ears, Nose, Mouth, and Throat: Denies abnormal hearing Cardiovascular: Denies chest pain, Denies fainting, Denies irregular heart rhythm Respiratory: Denies chest congestion, Denies cough, Denies shortness of breath Gastrointestinal: Denies abdominal pain Genitourinary: Reports blood in urine Musculoskeletal: Denies back pain, Denies body aches Skin/Breast: Denies bleeding lesions Neurologic: Denies abnormal hearing Endocrine: Denies increased urination PMFSH - History History Provided By: Patient, Medical Record - Medical / Surgical Hx Neg / Unobtainable Medical Problems Denied: Yes - Medical History Medical History: Medical History (Last Reviewed 09/03/17 @ 22:33 by Reyna Fairchild RN) Hypertension - Surgical History Surgical History: Surgical History (Last Reviewed 09/03/17 @ 22:33 by Reyna Fairchild RN) H/O foot surgery H/O neck surgery H/O thumb surgery History of cholecystectomy History of cochlear implant History of rotator cuff surgery - Family History Family History: Family History (Last Updated 09/03/17 @ 22:17 by Elizabeth Garza MD) Other No family history of cardiac disease - Tobacco History Second Hand Smoke Exposure: Yes Smoking Status: Never smoker - Alcohol History How Often Do You Have a Drink Containing Alcohol: 2 to 4 times a month - Substance Use History Substance History: No History of Abuse - Travel History Recent Travel in the [place] Within the Last 8 Weeks: No Recent Travel Out of the Country Within the Last 8 Weeks: No - Immunization History Tetanus Immunization: Unsure Hx Influenza Vaccine This Season: Yes Medications and Allergies Active Medications: Active Medications Acetaminophen (Tylenol) 650 mg PO Q4H PRN PRN Reason: Temp > 100.4 Last Admin: 09/05/17 12:40 Dose: 650 mg Al Hydroxide/Mg Hydroxide (Milk Of Magnesia Liq) 30 ml PO Q12H PRN PRN Reason: Mild Constipation Bisacodyl (Dulcolax Supp) 10 mg RECTAL DAILY PRN PRN Reason: SEVERE CONSITIPATION Heparin Sodium (Porcine) (Heparin Inj) 5,000 units SQ Q8H [facility] Last Admin: 09/05/17 04:25 Dose: 5,000 units Sodium Chloride (1/2 Normal Saline Inj) 1,000 mls @ 100 mls/hr IV.CONT .Q10H [facility] Last Admin: 09/05/17 11:27 Dose: 100 mls/hr Ceftriaxone Sodium 1,000 mg/ (Sodium Chloride) 100 mls @ 200 mls/hr IV.SIG Q12HR [facility] Lactulose (Lactulose Liq) 30 ml PO DAILY PRN PRN Reason: SEVERE CONSITIPATION Metoprolol Succinate (Toprol Xl) 50 mg PO BID [facility] Last Admin: 09/05/17 08:15 Dose: 50 mg Ondansetron HCl (Zofran Odt) 4 mg PO Q6H PRN PRN Reason: NAUSEA OR VOMITING Last Admin: 09/05/17 08:38 Dose: 4 mg Pantoprazole Sodium (Protonix) 40 mg PO DAILY [facility] Last Admin: 09/05/17 08:15 Dose: 40 mg Senna/Docusate Sodium (Sharri-Colace) 1 tab PO BID [facility] Last Admin: 09/05/17 08:21 Dose: Not Given Sennosides (Senokot) 17.2 mg PO Q12H PRN PRN Reason: Moderate Constipation Temazepam (Restoril) 15 mg PO HS PRN PRN Reason: INSOMNIA Allergies Allergy/AdvReac Type Severity Reaction Status Date / Time clindamycin Allergy Mild Rash Verified 09/05/17 13:54 penicillin G Allergy Mild rash Verified 09/05/17 13:54 Home Medications Medication Instructions Recorded Confirmed Type Aspir-81 1 tab PO DAILY 09/03/17 09/03/17 History Lantoprost 09/03/17 History metoprolol succinate 50 mg PO BID 09/03/17 09/03/17 History omeprazole 40 mg PO DAILY 09/03/17 09/03/17 History Physical Exam Vital Signs - 24 hr 09/04/17 20:00 09/05/17 00:00 09/05/17 04:00 Temperature 99.9 F H 98.0 F 98.8 F Pulse Rate 71 71 133 H Respiratory Rate 18 18 20 Blood Pressure 133/76 158/72 H 132/63 Pulse Oximetry 95 95 92 L 09/05/17 08:00 09/05/17 12:00 09/05/17 16:00 Temperature 101.5 F H 101.1 F H 98.1 F Pulse Rate 72 70 62 Respiratory Rate 17 18 18 Blood Pressure 134/77 157/71 H 146/63 H Pulse Oximetry 95 97 96 Physical Exam: GENERAL: This is a well-nourished, well-developed patient, in no apparent distress. SKIN: No rashes, ecchymoses or lesions. Cool and dry. HEAD: Atraumatic. Normocephalic. EYES: Extraocular motions intact. No scleral icterus. No injection or drainage. ENT: Nose without bleeding, purulent drainage. Airway patent. NECK: Trachea midline. No JVD or lymphadenopathy CARDIOVASCULAR: Normal pulse RESPIRATORY: Nonlabored GASTROINTESTINAL: Abdomen soft, non-tender, nondistended. MUSCULOSKELETAL: Extremities without clubbing, cyanosis, or edema. NEUROLOGICAL: Awake and alert. Motor and sensory grossly within normal limits. Normal speech. Lab results reviewed: Yes Laboratory Results - last 24 hr 09/05/17 04:35 WBC 10.7 RBC 4.30 L Hgb 12.5 L Hct 37.8 L MCV 87.8 MCH 29.1 MCHC 33.2 RDW 14.7 Plt Count 133 L MPV 9.7 Neut % (Auto) 67.8 Lymph % (Auto) 16.7 [place] % (Auto) 14.9 H Eos % (Auto) 0.3 Baso % (Auto) 0.3 Neut # (Auto) 7.3 Lymph # (Auto) 1.8 [place] # (Auto) 1.6 H Eos # (Auto) 0.0 Baso # (Auto) 0.0 WBC Differential . Differential Comment Auto diff final Microbiology 09/04/17 02:05 Aerobic Blood Culture - Preliminary Blood - Peripheral No growth in 1 day Anaerobic Blood Culture - Preliminary No growth in 1 day 09/04/17 02:00 Aerobic Blood Culture - Preliminary Blood - Peripheral No growth in 1 day Anaerobic Blood Culture - Preliminary No growth in 1 day 09/03/17 16:30 Urine Culture - Final Clean Catch Urine Escherichia coli Result Diagrams: 09/05/17 04:35 09/04/17 02:00 Personally reviewed images: Yes Imaging: ITS Impressions Foot X-Ray 09/03/17 16:37 CONCLUSION: No acute bony abnormalities. Previous joint replacement at the second MTP. 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 Abdomen/Bladder Ultrasound 09/05/17 00:00 CONCLUSION: 1. No renal calculi or solid masses. 2. Small simple cyst in left kidney. Assessment and Plan - Assessment (1) Acute UTI Code(s): N39.0 - Urinary tract infection, site not specified Status: Acute (2) Hematuria Code(s): R31.9 - Hematuria, unspecified Status: Acute (3) Sepsis Code(s): A41.9 - Sepsis, unspecified organism Status: Acute - Plan -Continue antibiotic per culture results -No immediate urological intervention indicated at this time -Patient may followup with urology in clinic for hematuria evaluation. Plan discussed with patient who understands and agrees with above plan -Please call with questions (3) Sepsis Qualifiers: Sepsis type: sepsis due to unspecified organism Qualified Code(s): A41.9 - Sepsis, unspecified organism
[2017-09-06] MEDS: Sodium Chloride 0.45 % Inj 1,000 ML IV.CONT SCH (07:28)
[2017-09-06 07:31] LABS: Hematocrit 37.6 % (39.0-51.0); Hemoglobin 12.5 gm/dL (13.0-17.0); Mean Corpuscular HGB Conc 33.3 % (32.0-36.0); Mean Corpuscular Hemoglobin 29.3 pg (27.0-34.0); Mean Corpuscular Volume 87.9 fL (80.0-100.0); Mean Platelet Volume 10.3 fL (7.0-11.0); Platelet Count 130 th/mm3 (150-450); Red Blood Count 4.27 mil/mm3 (4.50-5.90); Red Cell Distribution Width 15.1 % (11.6-17.2); White Blood Count 7.2 th/mm3 (4.0-11.0)
[2017-09-06 07:57] LABS: Calcium 8.2 mg/dL (8.5-10.1); Carbon Dioxide 31.9 meq/L (21.0-32.0); Potassium 3.9 meq/L (3.5-5.1)
--- NOTE | 2017-09-06 09:56 | P.DS ---
Date of admission: 09/03/17 21:34 Primary care physician: Minal Rainey MD Brief History from admission: HPI from the admitting physician 77-year-old male with a past medical history significant for hypertension and GERD presents to the emergency department for evaluation of a possible foot infection. 2 weeks ago, the patient had an artificial MCP joint in the right second digit and he has been concerned that he had an infection because he had nausea and vomiting this morning with a fever to 101 today. He also reports urinary frequency and burning with urination. He denies any foot pain. He is status post Medrol Dosepak which he finished on Monday. He has a leukocytosis however this is likely secondary to steroid use. UA consistent with UTI. He denies any chest pain or shortness of breath. No cough. No abdominal pain. No lateralizing signs/symptoms. Update on the day of discharge: 09/06/17 Patient reports he is feeling great. Hematuria completely resolved. He is requesting to go home. DS: Diagnosis - Discharge Diagnosis (1) Sepsis Status: Acute (2) Hematuria Status: Acute (3) Acute UTI Status: Acute DS: Medications - Discharge Medications Prescriptions: cefuroxime axetil 500 mg PO Q12H #8 tab DS: Summary Hospital Course: 77-year-old male admitted with sepsis secondary to UTI. Evaluation and treatment course detailed below: Sepsis secondary to UTI: Urine grew E. Coli: -Patient treated with IV Rocephin. Urine cultures grew E. coli. He is discharged on cefuroxime to complete the course of treatment. Hematuria: ?Related to UTI as above. He has had recurrent UTIs -Urology evaluated the patient. Heparin for DVT prophylaxis was discontinued. Hematuria completely resolved. -Renal and bladder ultrasound unremarkable. The patient is to follow-up with urology outpatient for further workup. Hypertension/GERD Continue home medications - Time Spent with Patient Total time spent providing and/or coordinating discharge services: Less than 30 minutes - Quality: VTE Deep Vein Thrombosis/Pulmonary Embolism Present on Admission: No Exam Vital signs: Vital Signs 09/05/17 12:00 09/05/17 16:00 09/05/17 20:00 Temperature 101.1 F H 98.1 F 100.5 F H Pulse Rate 70 62 67 Respiratory Rate Blood Pressure 157/71 H 146/63 H 155/70 H Pulse Oximetry 97 96 96 09/06/17 00:00 09/06/17 04:00 09/06/17 08:00 Temperature 97.3 F L 98.5 F 99.0 F Pulse Rate 60 60 59 L Respiratory Rate 16 16 18 Blood Pressure 124/63 151/67 H 138/65 Pulse Oximetry 98 98 94 L Intake & Output 09/05/17 09/06/17 09/06/17 18:59 06:59 18:59 Intake Total 2930 / 2930 2100 / 2100 Output Total 1949 950 / 950 Balance 980 / 980 1150 / 1150 Intake: IV 2200 / 2200 2100 / 2100 1/2 Normal Saline Inj 1,000 ML 2000 / 2000 @ 100 mls/hr IV.CONT .Q10H [facility] Rx#:[id number] Rocephin Inj 1,000 MG In NS Inj 100 / 100 100 / 100 100 ML @ 200 mls/hr IV.SIG Q12HR [facility] Rx#:[id number] Oral 730 / 730 Output: Urine 1949 950 / 950 Other: Date of Last Bowel Movement 09/03/17 Narrative: GENERAL: This is a well-nourished, well-developed patient, in no apparent distress. CARDIOVASCULAR: Normal rate and regular rhythm without murmurs, gallops, or rubs. RESPIRATORY: Good respiratory efforts. Breath sounds equal and clear to auscultation bilaterally. GASTROINTESTINAL: Abdomen soft, non-tender, non-distended. Normal active bowel sounds MUSCULOSKELETAL: Extremities without cyanosis, or edema. NEURO: Alert & Oriented x4 to person, place, time, situation. Moves all ext x4 PSYCH: Appropriate mood and affect. Results Procedures completed during hospitalization: None Labs on day of discharge: Labs from last 24 hours 09/06/17 09/06/17 06:38 06:35 WBC 7.2 RBC 4.27 L Hgb 12.5 L Hct 37.6 L MCV 87.9 MCH 29.3 MCHC 33.3 RDW 15.1 Plt Count 130 L MPV 10.3 Sodium 142 Potassium 3.9 Chloride 105 Carbon Dioxide 31.9 Anion Gap 5 BUN 9 Creatinine 0.92 Estimated GFR 80 L Random Glucose 96 Calcium 8.2 L Preliminary micro results at discharge 09/04/17 02:05 Aerobic Blood Culture - Preliminary Blood - Peripheral No growth in 1 day Anaerobic Blood Culture - Preliminary No growth in 1 day 09/04/17 02:00 Aerobic Blood Culture - Preliminary Blood - Peripheral No growth in 1 day Anaerobic Blood Culture - Preliminary No growth in 1 day - Impressions ITS Impressions Foot X-Ray 09/03/17 16:37 CONCLUSION: No acute bony abnormalities. Previous joint replacement at the second MTP. 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 Abdomen/Bladder Ultrasound 09/05/17 00:00 CONCLUSION: 1. No renal calculi or solid masses. 2. Small simple cyst in left kidney. Discharge Plan - Discharge Disposition Patient Disposition: Discharge Home - Discharge Condition Condition: Good - Discharge Order Discharge Orders: Discharge Order (Routine); Ordered 09/06/17 Ordered By: Aravind Lai - Physicians Team Primary Care Provider: Minal Rainey Attending Provider: Aravind Lai Other Providers: Keanu Nix MD
[2017-09-06] MEDS: Senna/Docusate Sodium 8.6/50 MG Tablet PO SCH (10:51)
== END 2017-09-06 11:11 | disposition home or self-care (01) ==
LOC: NEPC 14:27 → NEDA 14:27 → N07 21:33
PROVIDERS: ADMIT Family Medicine; ATTEND Family Medicine

== ENCOUNTER 2018-04-01 10:55 | Inpatient (IN) ==
[2018-04-01] MEDS ORDERED: Morphine Inj 4 MG/ML Vial IV.PUSH ONE (11:39)
--- NOTE | 2018-04-01 11:43 | ED ---
HPI General Chief Complaint: Fall Stated Complaint: fell in shower/splitting blood/hurt internally Time Seen by Provider: 04/01/18 11:31 Source: patient and family Mode of arrival: wheelchair Limitations: no limitations History of Present Illness HPI Narrative: Patient is a 77-year-old male with history of cochlear implant and hypertension, who presents with complaint of a fall. He states that he slipped and fell in the shower yesterday and struck his head and back. He had severe back and abdominal pain throughout the night with multiple episodes of nausea and vomiting. He believes the vomiting was secondary to the pain though he is not sure. He is now starting to cough up sputum with streaks of blood. He is not having any chest pain or shortness of breath. He is not on any blood thinners. He did have chills last night with malaise. MD complaint: Reports fall Onset (ago): hour(s) Fall from: standing Fall witnessed: no Place fall occurred: home Loss of consciousness: unsure Prolonged down time: no Symptoms prior to fall: Reports none Context: Reports tripped/slipped Location of injury: Reports head, back and abdomen Severity: moderate Associated symptoms (after fall): Reports other Related Data Home Medications Medication Instructions Recorded Confirmed Aspir-81 1 tab PO DAILY 09/03/17 04/01/18 Lantoprost 1 drop OPHTHALMIC (EYE) HS 09/03/17 04/01/18 metoprolol succinate 50 mg PO BID 09/03/17 04/01/18 omeprazole 40 mg PO DAILY 09/03/17 04/01/18 Alreds 1 tab PO BID 04/01/18 Tumeric 1,500 mg PO QID 04/01/18 ascorbic acid (vitamin C) [Vitamin 500 mg PO BID 04/01/18 04/01/18 C] cholecalciferol (vitamin D3) 1,000 unit PO DAILY 04/01/18 04/01/18 [Vitamin D3] coenzyme Q10 [CoQ-10] 300 mg PO DAILY 04/01/18 04/01/18 [id number] oil [[place]apa-3 1,200 mg PO DAILY 04/01/18 04/01/18 Fish Oil] tamsulosin [Flomax] 0.4 mg PO DAILY 04/01/18 04/01/18 vit [id number] [B 1 tab SUBLINGUAL 04/01/18 Complex] Allergies Allergy/AdvReac Type Severity Reaction Status Date / Time clindamycin Allergy Mild Rash Verified 04/01/18 11:18 penicillin G Allergy Mild rash Verified 04/01/18 11:18 Review of Systems ROS: all other systems reviewed are negative [facility] Medical History Medical History Hypertension (Acute) Surgical History Surgical History H/O foot surgery (Acute) H/O neck surgery (Acute) H/O thumb surgery (Acute) History of cholecystectomy (Acute) History of cochlear implant (Acute) History of rotator cuff surgery (Acute) Family History Family History Other No family history of cardiac disease Social History Social History Substance History: No History of Abuse Second Hand Smoke Exposure: No Smoking Status: Former smoker Tobacco Type: Cigarettes How Often Do You Have a Drink Containing Alcohol: 4 or more times a week Recent Travel in [facility] within the Last 8 Weeks: No Recent Out of Country Travel within the Last 8 Weeks: No Exam Narrative Exam Narrative: GENERAL: Well-appearing male whom intermittently winces in pain SKIN: Focused skin assessment warm/dry. Abrasion to the right knee. HEAD: Atraumatic. Normocephalic. EYES: Pupils equal and round. No scleral icterus. No injection or drainage. ENT: No nasal bleeding or discharge. Mucous membranes pink and moist. No intraoral lesions. NECK: Trachea midline. No JVD. CARDIOVASCULAR: Regular rate and rhythm. No murmur appreciated. Intact and equal peripheral pulses. RESPIRATORY: No accessory muscle use. Clear to auscultation. Breath sounds equal bilaterally. GASTROINTESTINAL: Abdomen soft, non-tender, nondistended. Hepatic and splenic margins not palpable. MUSCULOSKELETAL: No obvious deformities. No clubbing. No cyanosis. No edema. No C, T, L-spine tenderness though he does have tenderness to posterior ribs on both sides. NEUROLOGICAL: Awake and alert. No obvious cranial nerve deficits. Motor grossly within normal limits. Normal speech. PSYCHIATRIC: Appropriate mood and affect; insight and judgment normal. Course Initial Documented Vital Signs Temperature 98.9 F 04/01/18 11:18 Pulse Rate 84 04/01/18 11:18 Respiratory Rate 22 04/01/18 11:18 Blood Pressure 113/56 L 04/01/18 11:18 Pulse Oximetry 94 L 04/01/18 11:18 Last Documented Vital Signs Temperature 98.9 F 04/01/18 11:18 Pulse Rate 88 04/01/18 14:00 Respiratory Rate 22 04/01/18 14:00 Blood Pressure 118/53 L 04/01/18 14:00 Pulse Oximetry 96 04/01/18 14:00 Medical Decision Making MDM Narrative Medical decision making narrative: Patient is a 77-year-old male who presents with complaint of bilateral low chest upper abdominal pain. He did have a slip and fall in the shower last night. He also had chills, nausea, vomiting and hemoptysis overnight. Labs reveal a leukocytosis and thrombocytopenia. Chest x -ray is abnormal and may be contusion versus consolidation. CT head was unremarkable. C-spine does not reveal an acute fracture CT of the chest reveals right posterior rib fractures with a left lung consolidation. CT of the abdomen pelvis does not reveal any other acute findings. He has not been admitted to the hospital in the last several months. He does have a new oxygen requirement here. He has been started on Rocephin and azithromycin for his community-acquired pneumonia. He has been admitted to Dr. Iqbal, hospitalist strike operations officer, for further evaluation and management. Medical Screen Exam Complete: Yes Emergency Medical Condition: Yes Differential Diagnosis Differential Diagnosis: Differential diagnosis includes but is not limited to rib fracture, splenic injury, pulmonary contusion. Medical Records Medical records reviewed: Yes I reviewed the patient's medical records. Lab Data Lab results reviewed: Yes I reviewed the patient's lab results. Result diagrams: 04/01/18 11:50 04/01/18 11:50 Lab Results 04/01/18 04/01/18 Range/Units 11:50 11:50 WBC 16.2 H (4.0-11.0) th/mm3 RBC 4.55 (4.50-5.90) mil/mm3 Hgb 13.2 (13.0-17.0) gm/dL Hct 38.9 L (39.0-51.0) % MCV 85.5 (80.0-100.0) fL MCH 29.1 (27.0-34.0) pg MCHC 34.0 (32.0-36.0) % RDW 14.2 (11.6-17.2) % Plt Count 128 L (150-450) th/mm3 MPV 10.1 (7.0-11.0) fL Sodium 138 (136-145) meq/L Potassium 3.5 (3.5-5.1) meq/L Chloride 102 (98-107) meq/L Carbon Dioxide 29.0 (21.0-32.0) meq/L Anion Gap 7 (5-15) meq/L BUN 27 H (7-18) mg/dL Creatinine 1.20 (0.60-1.30) mg/dL Estimated GFR 59 L (>89) mL/min Random Glucose 92 (74-106) mg/dL Calcium 8.5 (8.5-10.1) mg/dL Imaging Data Attestation: I personally reviewed and interpreted this imaging study as follows : Radiologist's impression: Chest X-Ray 04/01/18 11:39 CONCLUSION: Airspace disease in the lower left lung as above. CT pending. Abdomen/Pelvis CT 04/01/18 11:40 CONCLUSION: 1. Mildly displaced right posterior 10th and 11th rib fractures without hemopneumothorax or pneumothorax. 2. Patchy airspace disease left lung base most characteristic of pneumonia or aspiration. 3. Previous cholecystectomy. Mild fatty liver. No acute traumatic injury identified within the abdomen and pelvis. Cervical Spine CT 04/01/18 11:40 CONCLUSION: 1. At C2-3 there is a left paracentral disc protrusion with left lateral recess stenosis. 2. Degenerative changes as above in the remainder of the cervical spine with previous fusion at C5-6-7 with anterior plate and screw fixation. 3. No acute fracture or spondylolisthesis. 4. Previous surgery in the left auditory canal and mastoid region with abnormal soft tissue in the area of the mastoids. Head CT 04/01/18 11:40 CONCLUSION: 1. No acute findings. Chronic moderate white matter ischemic changes. Implanted device just external to left parietal calvarium. . . Chest CT 04/01/18 11:43 CONCLUSION: 1. Mildly displaced fractures through the right 10th and 11th ribs posteriorly without pneumothorax or hemothorax. 2. Patchy airspace disease in the contralateral left lung. Primary differential diagnosis includes aspiration and pneumonia. Contusion less likely. 3. Old healed sternal fracture. No mediastinal hematoma. Lumbar Spine CT 04/01/18 11:43 CONCLUSION: 1. No acute bony abnormalities within the lumbar spine. Degenerative changes as above. Thoracic Spine CT 04/01/18 11:43 CONCLUSION: 1. Right posterior 10th and 11th rib fractures. No thoracic spine fracture or subluxation. Knee X-Ray 04/01/18 11:47 CONCLUSION: Moderate osteoarthritis. No acute bony abnormality. Discharge Plan Discharge Disposition Patient Disposition: ED Admit(ED Internal Use Only) Discharge Condition Condition: Stable Discharge Order Discharge Orders: ED Use Only Admit Order (Routine); Ordered 04/01/18 Ordered By: Margaret Palomo Discharge Details Diagnosis: Pneumonia, Hypoxia, CHI (closed head injury), Closed rib fracture Physicians Team ED Provider: Margaret Palomo Primary Care Provider: Minal Rainey Attending Provider: Huy Iqbal Discharge Interventions Interventions: Vital Signs Last Done: 04/01/18 14:00 Status ED Status: Admitted Patient
[2018-04-01 12:14] LABS: Hematocrit 38.9 % (39.0-51.0); Hemoglobin 13.2 gm/dL (13.0-17.0); Mean Corpuscular Hemoglobin 29.1 pg (27.0-34.0); Mean Corpuscular Volume 85.5 fL (80.0-100.0); Mean Platelet Volume 10.1 fL (7.0-11.0); Platelet Count 128 th/mm3 (150-450); Red Blood Count 4.55 mil/mm3 (4.50-5.90); Red Cell Distribution Width 14.2 % (11.6-17.2); White Blood Count 16.2 th/mm3 (4.0-11.0)
[2018-04-01 12:20] LABS: Potassium 3.5 meq/L (3.5-5.1)
[2018-04-01 12:23] LABS: Calcium 8.5 mg/dL (8.5-10.1)
--- NOTE | 2018-04-01 12:26 | XR ---
EXAM DATE: 04/01/2018 12:14 PM EST AGE/SEX: 77 years / Male INDICATIONS: Trauma. Fall in shower. Back pain. Coughing up blood. CLINICAL DATA: This is the patient's initial encounter. Patient reports that signs and symptoms have been present for 1 day and indicates a pain score of 7/10. MEDICAL/SURGICAL HISTORY: . Hypertension. Cholecystectomy. Foot surgery. Neck surgery. Thumb carlos rgery. Cochlear implant. Rotator cuff surgery. . COMPARISON: [facility], XR CHEST PA AND LAT, 11/16/2016. . FINDINGS: There is new airspace consolidation in the lower left lung in patient with recent history of trauma. Differential diagnosis includes lung contusion and aspiration. Cannot exclude pneumonia. CT pending. Right lung is clear. CONCLUSION: Airspace disease in the lower left lung as above. CT pending. Electronically signed by: Elias Hensley MD Board Certified Radiologist 04/01/2018 12:25 PM EST
--- NOTE | 2018-04-01 12:27 | XR ---
EXAM DATE: 04/01/2018 12:15 PM EST AGE/SEX: 77 years / Male INDICATIONS: Pain near medial side knee joint. Fall in shower. CLINICAL DATA: This is the patient's initial encounter. Patient reports that signs and symptoms have been present for 1 day and indicates a pain score of 7/10. MEDICAL/SURGICAL HISTORY: . Hypertension. Cholecystectomy. Foot surgery. Neck surgery. Thumb carlos rgery. Cochlear implant. Rotator cuff surgery. . COMPARISON: No prior exams available for comparison. FINDINGS: Bony structures are intact and in normal alignment. Moderate osteoarthritis especially at the medial joint. No significant joint effusion. CONCLUSION: Moderate osteoarthritis. No acute bony abnormality. Electronically signed by: Elias Hensley MD Board Certified Radiologist 04/01/2018 12:26 PM EST
--- NOTE | 2018-04-01 13:08 | CT ---
EXAM DATE: 04/01/2018 1:02 PM EST AGE/SEX: 77 years / Male INDICATIONS: Fell in shower last night striking head and back. Severe abdominal and back pain throug hout the night with episodes of nausea, vomiting and coughing up streaks of blood. CLINICAL DATA: This is the patient's initial encounter. Patient reports that signs and symptoms have been present for 2 days and indicates a pain score of 8/10. MEDICAL/SURGICAL HISTORY: Hypertension. Cholecystectomy. Orthopedic surgery. Neck surgery. Cochlear implant. RADIATION DOSE: 69.66 CTDI (mGy) ;Tabletop exam COMPARISON: [facility], CT TEMPORAL BONE W/O CONTRAST, BILATERAL, 10/12/2016. . TECHNIQUE: CT of the head without contrast. Using automated exposure control and adjustment of the mA and/or kV according to patient size, radiation dose was kept as low as reasonably achievable to ob tain optimal diagnostic quality images. DICOM format image data is available electronically for revi ew and comparison. FINDINGS: Cerebrum: The ventricles are normal for age. No evidence of midline shift, mass lesion, hemorrhage or acute infarction. No extraaxial fluid collections are seen. Moderate white matter ischemic change s Posterior Fossa: The cerebellum and brainstem are intact. The 4th ventricle is midline. The cerebe llopontine angle is unremarkable. Extracranial: The visualized portion of the orbits is intact. Skull: The calvaria is intact. No evidence of skull fracture. CONCLUSION: 1. No acute findings. Chronic moderate white matter ischemic changes. Implanted device just external to left parietal calvarium. . . Electronically signed by: Elias Hensley MD Board Certified Radiologist 04/01/2018 1:06 PM EST
--- NOTE | 2018-04-01 13:12 | CT ---
EXAM DATE: 04/01/2018 1:02 PM EST AGE/SEX: 77 years / Male INDICATIONS: Fell in shower last night striking head and back. Severe abdominal and back pain throug hout the night with episodes of nausea, vomiting and coughing up streaks of blood. CLINICAL DATA: This is the patient's initial encounter. Patient reports that signs and symptoms have been present for 2 days and indicates a pain score of 8/10. MEDICAL/SURGICAL HISTORY: Hypertension. Cholecystectomy. Orthopedic surgery. Neck surgery. Cochlear implant. RADIATION DOSE: 28.69 CTDI (mGy) ; Combined studies COMPARISON: No prior exams available for comparison. TECHNIQUE: Multiple contiguous axial images were obtained through the chest during bolus infusion of 95 ml Omnipaque 350 (iohexol) nonionic water-soluble contrast as a cumulative dose for multiple exa ms. Images were obtained in suspended respiration using multiple row detector helical technique. U sing automated exposure control and adjustment of the mA and/or kV according to patient size, radiati on dose was kept as low as reasonably achievable to obtain optimal diagnostic quality images. DICOM format image data is available electronically for review and comparison. FINDINGS: There is no mediastinal hematoma. No evidence for traumatic aortic injury. No pleural or pericardial effusion. There are mildly displaced fractures through the right 10th and 11th ribs posteriorly. There is no pn eumothorax. There is an old healed sternal fracture. There is patchy airspace disease throughout the left lung involving upper and lower lobes. No associa corazon rib fractures identified. Differential diagnosis includes pneumonia and aspiration. CONCLUSION: 1. Mildly displaced fractures through the right 10th and 11th ribs posteriorly without pneumothorax or hemothorax. 2. Patchy airspace disease in the contralateral left lung. Primary differential diagnosis includes a spiration and pneumonia. Contusion less likely. 3. Old healed sternal fracture. No mediastinal hematoma. Electronically signed by: Elias Hensley MD Board Certified Radiologist 04/01/2018 1:11 PM EST
--- NOTE | 2018-04-01 13:15 | CT ---
EXAM DATE: 04/01/2018 1:03 PM EST AGE/SEX: 77 years / Male INDICATIONS: Fell in shower last night striking head and back. Severe abdominal and back pain throug hout the night with episodes of nausea, vomiting and coughing up streaks of blood. CLINICAL DATA: This is the patient's initial encounter. Patient reports that signs and symptoms have been present for 2 days and indicates a pain score of 8/10. MEDICAL/SURGICAL HISTORY: Hypertension. Cholecystectomy. Orthopedic surgery. Neck surgery. Coch lear implant. ORAL CONTRAST: No oral contrast ingested. RADIATION DOSE: 28.69 CTDI (mGy) ; Combined studies COMPARISON: No prior exams available for comparison. TECHNIQUE: Multiple contiguous axial images were obtained through the abdomen and pelvis following b olus infusion of 95 ml Omnipaque 350 (iohexol) nonionic water-soluble contrast as a cumulative dose for multiple exams. No oral contrast ingested. Using automated exposure control and adjustment of t he mA and/or kV according to patient size, radiation dose was kept as low as reasonably achievable to obtain optimal diagnostic quality images. DICOM format image data is available electronically for r eview and comparison. FINDINGS: Patchy airspace disease left lung base. Mildly displaced right posterior 10th and 11th rib fractures. No acute findings in the liver, spleen, adrenals, kidneys or pancreas. Previous cholecystectomy. No free fluid. No bowel obstruction. No adenopathy. Previous cholecystectomy. Colonic diverticulosis without evidence for diverticulitis. Small hiatal hernia. CONCLUSION: 1. Mildly displaced right posterior 10th and 11th rib fractures without hemopneumothorax or pneumoth orax. 2. Patchy airspace disease left lung base most characteristic of pneumonia or aspiration. 3. Previous cholecystectomy. Mild fatty liver. No acute traumatic injury identified within the abdom en and pelvis. Electronically signed by: Elias Hensley MD Board Certified Radiologist 04/01/2018 1:14 PM EST
[2018-04-01] MEDS ORDERED: Azithromycin Inj 500 MG in Sodium Chlor 0.9% Inj 250 ML IV.SIG ONE (13:34)
--- NOTE | 2018-04-01 13:49 | CT ---
EXAM DATE: 04/01/2018 1:28 PM EST AGE/SEX: 77 years / Male INDICATIONS: Fell in shower last night striking head and back. Severe abdominal and back pain throug hout the night with episodes of nausea, vomiting and coughing up streaks of blood. CLINICAL DATA: This is the patient's initial encounter. Patient reports that signs and symptoms have been present for 2 days and indicates a pain score of 8/10. MEDICAL/SURGICAL HISTORY: Hypertension. Cholecystectomy. Orthopedic surgery. Neck surgery. Coch lear implant. RADIATION DOSE: 28.17 CTDI (mGy) COMPARISON: No prior exams available for comparison. TECHNIQUE: Contiguous axial images were obtained using helical multirow detector technique. The vol umetric data was post-processed with multiplanar reconstruction in oblique axial, sagittal, and coron al planes. Using automated exposure control and adjustment of the mA and/or kV according to patient s ize, radiation dose was kept as low as reasonably achievable to obtain optimal diagnostic quality santhosh ges. DICOM format image data is available electronically for review and comparison. FINDINGS: At C2-3 there is a left paracentral disc protrusion with left lateral recess stenosis. Also mild left foraminal stenosis. At C3-4 there is degenerative change with moderate bilateral foraminal stenosis. At C4-5 there is mild right foraminal stenosis. Facet arthropathy. No central canal stenosis. At C5-6 there is moderate bilateral foraminal stenosis. No central stenosis. At C6-7 there is mild bilateral foraminal encroachment. At C7-T1 there is no significant abnormality. Previous fusion across C5-6-7. CONCLUSION: 1. At C2-3 there is a left paracentral disc protrusion with left lateral recess stenosis. 2. Degenerative changes as above in the remainder of the cervical spine with previous fusion at C5-6 -7 with anterior plate and screw fixation. 3. No acute fracture or spondylolisthesis. 4. Previous surgery in the left auditory canal and mastoid region with abnormal soft tissue in the a kai of the mastoids. Electronically signed by: Elias Hensley MD Board Certified Radiologist 04/01/2018 1:48 PM EST
--- NOTE | 2018-04-01 13:51 | CT ---
EXAM DATE: 04/01/2018 1:31 PM EST AGE/SEX: 77 years / Male INDICATIONS: Fell in shower last night striking head and back. Severe abdominal and back pain throug hout the night with episodes of nausea, vomiting and coughing up streaks of blood. CLINICAL DATA: This is the patient's initial encounter. Patient reports that signs and symptoms have been present for 2 days and indicates a pain score of 8/10. MEDICAL/SURGICAL HISTORY: Hypertension. Cholecystectomy. Orthopedic surgery. Neck surgery. Cochlear implant. RADIATION DOSE: . CTDI (mGy) ; Reconstructed from previous dataset, no dose COMPARISON: No prior exams available for comparison. TECHNIQUE: Contiguous axial images were acquired with a multirow detector CT scanner after intraveno us administration of 95 ml Omnipaque 350 (iohexol) nonionic water-soluble contrast as a cumulative d ose for multiple exams. Multiplanar reconstructions in the sagittal and coronal plane were also perf ormed. Using automated exposure control and adjustment of the mA and/or kV according to patient size, radiation dose was kept as low as reasonably achievable to obtain optimal diagnostic quality images. DICOM format image data is available electronically for review and comparison. FINDINGS: At T12-L1 there is no significant abnormality. At L1-2 there is a mild disc protrusion with mild lateral recess stenosis. At L2-3 there is a minimal retrolisthesis and osteophytic ridging with a mild central canal and later al recess and foraminal stenosis bilaterally. At L3-4 there is a broad-based disc bulge and facet arthropathy with mild lateral recess and foramina l stenosis at At L4-5 there is a disc osteophyte complex and facet arthropathy with mild lateral recess and foramin al stenosis bilaterally. At L5-S1 there is a broad-based disc osteophyte complex and facet arthropathy with moderate bilateral foraminal stenosis. CONCLUSION: 1. No acute bony abnormalities within the lumbar spine. Degenerative changes as above. Electronically signed by: Elias Hensley MD Board Certified Radiologist 04/01/2018 1:50 PM EST
--- NOTE | 2018-04-01 13:55 | CT ---
EXAM DATE: 04/01/2018 1:34 PM EST AGE/SEX: 77 years / Male INDICATIONS: Fell in shower last night striking head and back. Severe abdominal and back pain throug hout the night with episodes of nausea, vomiting and coughing up streaks of blood. CLINICAL DATA: This is the patient's initial encounter. Patient reports that signs and symptoms have been present for 2 days and indicates a pain score of 8/10. MEDICAL/SURGICAL HISTORY: Hypertension. Cholecystectomy. Orthopedic surgery. Neck surgery. Cochlear implant. RADIATION DOSE: . CTDI (mGy) ; Reconstructed from previous dataset, no dose COMPARISON: [facility], CT CERVICAL SPINE W/O CONTRAST, 04/01/2018. . TECHNIQUE: Contiguous axial images were acquired using a multirow detector CT scanner after intraven ous administration of 95 ml Omnipaque 350 (iohexol) nonionic water-soluble contrast as a cumulative dose for multiple exams. Multiplanar reconstruction in the sagittal and coronal planes was performe d. Using automated exposure control and adjustment of the mA and/or kV according to patient size, ra diation dose was kept as low as reasonably achievable to obtain optimal diagnostic quality images. D ICOM format image data is available electronically for review and comparison. FINDINGS: No acute fracture or spondylolisthesis within the thoracic spine. No significant bony canal stenosis. Incidental note made of mildly displaced fractures right posterior 10th and 11th ribs. CONCLUSION: 1. Right posterior 10th and 11th rib fractures. No thoracic spine fracture or subluxation. Electronically signed by: Elias Hensley MD Board Certified Radiologist 04/01/2018 1:53 PM EST
[2018-04-01] MEDS: Sod Chloride 0.9% Inj 1,000 ML IV.CONT SCH (14:58)
[2018-04-01] MEDS: Lactobacillus Acidophilus/L. Spores Tablet PO SCH (17:11)
--- NOTE | 2018-04-01 17:35 | P.HPIM ---
History of Present Illness Primary Care Physician: Minal Rainey MD Chief Complaint: Fall in shower History of Present Illness: CT of the -[id number] male with known history of hypertension who presented to the emergency department for evaluation of hemoptysis status post fall in the shower. Patient states that he was in his normal state of health until this morning when he was taking a shower. He states that he slipped and he fell backwards landing on a bench in the shower across his bilateral back. Patient states that he thinks he hit his head and may have had a very quick episode of loss of consciousness. His came in and helped him back to his feet and then he started having cough with blood-streaked sputum. Because of that he came to the emergency department for evaluation. Patient had extensive radiological workup and found to have 2 displaced fracture ribs on the right 10th and 11th. CT of the chest was performed and rather impressive with completely normal lung brantley on the right however significant patchy airspace disease on the left lung which radiologist indicating aspiration and/or pneumonia, contusion less likely. However given the patient clinically presenting with the back pain, hemoptysis, hypoxia. Contusion will be higher on the differential. Patient also with findings consistent with sepsis. Leukocytosis, tachypnea, patchy airspace disease in the left lung. Patient denies any previous constitutional symptoms to include fever, chills, cough, congestion, rhinorrhea. Patient had immediate hemoptysis after fall with landing on a bench across his bilateral posterior lung. Inpatient Certification Inpatient Certification: I certify that the inpatient services were ordered in accordance with Medicare regulations governing the order. This includes certification that hospital inpatient services are reasonable and necessary and in the case of services not specified as inpatient-only under 42 CFR 419.22(n), that they are appropriately provided as inpatient services in accordance to with the 2-midnight benchmark under 43 CFR 412.3(e) Estimated Total Length of Stay (Days): 3 Plans for Post Hospital Care: Not yet determined Review of Systems Review of Systems: all other systems reviewed are negative Respiratory: Reports hemoptysis [facility] Medical History Medical History Hypertension (Acute) Surgical History Surgical History History of cataract surgery (Acute) H/O foot surgery (Acute) H/O neck surgery (Acute) H/O thumb surgery (Acute) History of cholecystectomy (Acute) History of cochlear implant (Acute) History of rotator cuff surgery (Acute) Family History Family History Other No family history of cardiac disease No pertinent family history Social History Social History Substance History: No History of Abuse Second Hand Smoke Exposure: No Smoking Status: Former smoker Tobacco Type: Cigarettes Number of Pack-Years (if former smoker): 20 Smoking End Date: Patient quit smoking 40 years ago How Often Do You Have a Drink Containing Alcohol: 4 or more times a week Recent Travel in [place] within the Last 8 Weeks: No Recent Out of Country Travel within the Last 8 Weeks: No Immunization History Tetanus Immunization: >5 Years Hx Influenza Vaccine This Season: Yes Medications and Allergies Allergies Allergy/AdvReac Type Severity Reaction Status Date / Time clindamycin Allergy Mild Rash Verified 04/01/18 11:18 penicillin G Allergy Mild rash Verified 04/01/18 11:18 Home Medications Medication Instructions Recorded Confirmed Type Aspir-81 1 tab PO DAILY 09/03/17 04/01/18 History Lantoprost 1 drop OPHTHALMIC (EYE) HS 09/03/17 04/01/18 History metoprolol succinate 50 mg PO BID 09/03/17 04/01/18 History omeprazole 40 mg PO DAILY 09/03/17 04/01/18 History Alreds 1 tab PO BID 04/01/18 History Tumeric 1,500 mg PO QID 04/01/18 History ascorbic acid (vitamin C) [Vitamin 500 mg PO BID 04/01/18 04/01/18 History C] cholecalciferol (vitamin D3) 1,000 unit PO DAILY 04/01/18 04/01/18 History [Vitamin D3] coenzyme Q10 [CoQ-10] 300 mg PO DAILY 04/01/18 04/01/18 History [id number]-epa-fish oil [[place]-3 1,200 mg PO DAILY 04/01/18 04/01/18 History Fish Oil] tamsulosin [Flomax] 0.4 mg PO DAILY 04/01/18 04/01/18 History vit [id number] [B 1 tab SUBLINGUAL 04/01/18 History Complex] Active Medications: Active Medications Acetaminophen (Tylenol) 650 mg PO Q4H PRN PRN Reason: Temp > 100.4 Hydrocodone Bitart/Acetaminophen (Foley 10/325) 1 tab PO Q4H PRN PRN Reason: Pain 7 to 10 Last Admin: 04/01/18 14:57 Dose: 1 tab Hydrocodone Bitart/Acetaminophen (Foley 5/325) 1 tab PO Q4H PRN PRN Reason: Pain 3 to 6 Al Hydroxide/Mg Hydroxide (Milk Of Magnesia Liq) 30 ml PO Q12H PRN PRN Reason: Mild Constipation Sodium Chloride (Ns Inj) 1,000 mls @ 80 mls/hr IV.CONT .[id number] [facility]A Last Infusion: 04/01/18 15:34 Dose: 80 mls/hr Ceftriaxone Sodium 1,000 mg/ (Sodium Chloride) 100 mls @ 200 mls/hr IV.SIG Q24H [facility] Azithromycin 500 mg/ Sodium (Chloride) 250 mls @ 250 mls/hr IV.SIG Q24H [facility] Lactobacillus Acidophilus (Lactinex) 1 tab PO TID [facility]IP[facility]A Last Admin: 04/01/18 17:11 Dose: 1 tab Ondansetron HCl (Zofran Inj) 4 mg IV.PUSH Q6H PRN PRN Reason: NAUSEA OR VOMITING Sodium Chloride (Ns Flush) 2 ml IV.FLUSH BID [facility]A Sodium Chloride (Ns Flush) 2 ml IV.FLUSH PRN PRN PRN Reason: FLUSH AFTER USING IV ACCESS Physical Exam Vital signs: Vital Signs 04/01/18 11:18 04/01/18 12:00 04/01/18 12:15 Temperature 98.9 F Pulse Rate 84 84 Respiratory Rate 22 Blood Pressure 113/56 L Pulse Oximetry 94 L 94 L 86 L 04/01/18 12:24 04/01/18 14:00 04/01/18 15:07 Temperature 98.2 F Pulse Rate 73 88 71 Respiratory Rate 20 22 18 Blood Pressure 121/62 118/53 L 107/55 L Pulse Oximetry 93 L 96 96 04/01/18 15:08 04/01/18 15:37 04/01/18 16:00 Temperature 97.5 F L Pulse Rate 71 71 77 Respiratory Rate 20 22 Blood Pressure 112/54 L 117/57 L Pulse Oximetry 95 95 92 L 04/01/18 17:03 Temperature Pulse Rate Respiratory Rate 19 Blood Pressure Pulse Oximetry Intake & Output 03/31/18 04/01/18 04/01/18 18:59 06:59 18:59 Intake Total 380 / 380 Balance 380 / 380 Weight 102.076 kg Intake: IV 380 / 380 NS Inj 1,000 ML @ 80 mls/hr IV. 50 / 50 CONT .[id number] [facility]A Rx#: [id number] Azithromycin Inj 500 MG In NS 250 / 250 Inj 250 ML @ 250 mls/hr IV.SIG ONCE ONE Rx#:[id number] Rocephin Inj 1,000 MG In NS Inj 80 / 80 100 ML @ 200 mls/hr IV.SIG ONCE ONE Rx#:[id number] Other: Date of Last Bowel Movement 03/31/18 Weight On Admission 102.076 kg Narrative: GENERAL: Well-developed, well-nourished, in no acute distress. alert and orientated HEENT: Head is normocephalic without any lesions or masses noted. Facial features are symmetric. Eyes: Pupils equal round reactive to light. Extraocular muscles are intact. Conjunctivae were clear. Oropharyngeal: Pharynx without any erythema edema. Tongue is midline without deviation. Buccal mucosa is moist without any masses or lesions NECK: Supple without any masses. Trachea midline no deviation. No JVD, no bruits are appreciated CARDIAC: Regular rhythm, regular rate. S1/S2 are heard. No murmurs gallops or rubs. LUNGS: Clear to auscultation bilaterally. No wheeze, rhonchi or rales. No use of accessory muscles on inspiration or expiration. ABDOMEN: Soft, nontender. Nondistended. Bowel sounds heard in all 4 quadrants. No organomegaly or masses. Negative rebound, negative guarding EXTREMITIES: No edema, pulses are equal bilaterally. No cyanosis or clubbing NEUROLOGY: Mood and affect appear appropriate. Cranial nerves II through XII grossly intact. Muscle strength 5/5 in upper and lower extremities bilaterally. Deep tendon reflexes are 2+ in upper and lower extremities bilaterally. Results Labs CBC & Chem 7: 04/01/18 11:50 04/01/18 11:50 Imaging Impressions Chest X-Ray 04/01/18 11:39 CONCLUSION: Airspace disease in the lower left lung as above. CT pending. Abdomen/Pelvis CT 04/01/18 11:40 CONCLUSION: 1. Mildly displaced right posterior 10th and 11th rib fractures without hemopneumothorax or pneumothorax. 2. Patchy airspace disease left lung base most characteristic of pneumonia or aspiration. 3. Previous cholecystectomy. Mild fatty liver. No acute traumatic injury identified within the abdomen and pelvis. Cervical Spine CT 04/01/18 11:40 CONCLUSION: 1. At C2-3 there is a left paracentral disc protrusion with left lateral recess stenosis. 2. Degenerative changes as above in the remainder of the cervical spine with previous fusion at C5-6-7 with anterior plate and screw fixation. 3. No acute fracture or spondylolisthesis. 4. Previous surgery in the left auditory canal and mastoid region with abnormal soft tissue in the area of the mastoids. Head CT 04/01/18 11:40 CONCLUSION: 1. No acute findings. Chronic moderate white matter ischemic changes. Implanted device just external to left parietal calvarium. . . Chest CT 04/01/18 11:43 CONCLUSION: 1. Mildly displaced fractures through the right 10th and 11th ribs posteriorly without pneumothorax or hemothorax. 2. Patchy airspace disease in the contralateral left lung. Primary differential diagnosis includes aspiration and pneumonia. Contusion less likely. 3. Old healed sternal fracture. No mediastinal hematoma. Lumbar Spine CT 04/01/18 11:43 CONCLUSION: 1. No acute bony abnormalities within the lumbar spine. Degenerative changes as above. Thoracic Spine CT 04/01/18 11:43 CONCLUSION: 1. Right posterior 10th and 11th rib fractures. No thoracic spine fracture or subluxation. Knee X-Ray 04/01/18 11:47 CONCLUSION: Moderate osteoarthritis. No acute bony abnormality. Caprini VTE Risk Assessment Caprini VTE Risk Assessment: Moderate/High Risk (score >= 2) Caprini Risk Assessment Model: Point Value = 1 Point Value = 2 Point Value = 3 Point Value = 5 Age 41-60 Minor surgery BMI > 25 kg/m2 Swollen legs Varicose veins or History of unexplained or recurrent spontaneous Oral contraceptives or hormone replacement Sepsis (< 1 month) Serious lung disease, including pneumonia (< 1 month) Abnormal pulmonary function Acute myocardial infarction Congestive heart failure (< 1 month) History of inflammatory bowel disease Medical patient at bed rest Age 61-74 Arthroscopic surgery Major open surgery (> 45 min) Laparoscopic surgery (> 45 min) Malignancy Confined to bed (> 72 hours) Immobilizing plaster cast Central venous access Age >= 75 History of VTE Family history of VTE Factor V Leiden Prothrombin [id number] Lupus anticoagulant Anticardiolipin antibodies Elevated serum homocysteine Heparin-induced thrombocytopenia Other congenital or acquired thrombophilia Stroke (< 1 month) Elective arthroplasty Hip, pelvis, or leg fracture Acute spinal cord injury (< 1 month) Prophylaxis Regimen: Total Risk Factor Score Risk Level Prophylaxis Regimen 0-1 Low Early ambulation 2 Moderate Order ONE of the following: *Sequential Compression Device (SCD) *Heparin 5000 units SQ BID 3-4 Higher Order ONE of the following medications: *Heparin 5000 units SQ TID *Enoxaparin/Lovenox 40 mg SQ daily (WT < 150 kg, CrCl > 30 mL/min) *Enoxaparin/Lovenox 30 mg SQ daily (WT < 150 kg, CrCl > 10-29 mL/min) *Enoxaparin/Lovenox 30 mg SQ BID (WT < 150 kg, CrCl > 30 mL/min) AND/OR *Sequential Compression Device (SCD) 5 or more Highest Order ONE of the following medications: *Heparin 5000 units SQ TID (Preferred with Epidurals) *Enoxaparin/Lovenox 40 mg SQ daily (WT < 150 kg, CrCl > 30 mL/min) *Enoxaparin/Lovenox 30 mg SQ daily (WT < 150 kg, CrCl > 10-29 mL/min) *Enoxaparin/Lovenox 30 mg SQ BID (WT < 150 kg, CrCl > 30 mL/min) AND *Sequential Compression Device (SCD) Assessment and Plan Plan Sepsis Patient met criteria on admission with leukocytosis, tachypnea, patchy airspace disease by CT Patient was started on empirical antibiotics include Rocephin and Zithromax Continue to follow blood cultures Continue to follow CBC Lactic acid level was normal Patchy airspace disease of the left lung status post fall with trauma to bilateral back and immediate hemoptysis resulting in hypoxia 10th and 11th right-sided rib fractures Likely pulmonary contusion on the left Continue O2 supplementation maintain O2 sat greater than 92% Continue treatment for community-acquired pneumonia Duo nebs as needed for shortness of breath or wheeze Pain control Incentive spirometry DVT prevention Sequential compression devices Avoid chemical prophylaxis secondary to hemoptysis Discussed Condition With: Patient, nursing staff, Dr. Iqbal H&P: Quality VTE Deep Vein Thrombosis/Pulmonary Embolism Present on Admission: No
[2018-04-02] MEDS: Benzonatate 100 MG Capsule PO PRN ×3 (00:21→17:43)
[2018-04-02] MEDS: Sod Chloride 0.9% Inj 1,000 ML IV.CONT SCH ×2 (04:04→17:44)
[2018-04-02 06:27] LABS: Chloride 101 meq/L (98-107); Potassium 3.6 meq/L (3.5-5.1); Sodium 137 meq/L (136-145)
[2018-04-02 06:35] LABS: Albumin 2.8 g/dL (3.4-5.0); Blood Urea Nitrogen 21 mg/dL (7-18); Calcium 7.8 mg/dL (8.5-10.1); Glucose,Random 107 mg/dL (74-106)
[2018-04-02 06:36] LABS: Anion Gap 6 meq/L (5-15); Carbon Dioxide 30.5 meq/L (21.0-32.0)
[2018-04-02 06:38] LABS: Alanine Aminotransferase 20 U/L (12-78); Aspartate Aminotransferase 20 U/L (15-37)
[2018-04-02 06:39] LABS: Glomerular Filtration Rate 79 mL/min (>89)
[2018-04-02 06:40] LABS: Total Protein 6.4 g/dL (6.4-8.2)
[2018-04-02 06:41] LABS: Alkaline Phosphatase 60 U/L (45-117)
[2018-04-02 06:58] LABS: Baso # (Auto) 0.1 th/mm3 (0.0-0.2); Baso % (Auto) 0.3 % (0.0-2.0); Eos % (Auto) 0.1 % (0.0-4.0); Hemoglobin 11.9 gm/dL (13.0-17.0); Lymph # (Auto) 1.8 th/mm3 (1.0-4.8); Mean Corpuscular HGB Conc 33.9 % (32.0-36.0); Mean Corpuscular Volume 85.7 fL (80.0-100.0); Mean Platelet Volume 10.2 fL (7.0-11.0); Mono # (Auto) 1.1 th/mm3 (0.0-0.9); Mono % (Auto) 5.8 % (0.0-8.0); Neut # (Auto) 15.4 th/mm3 (1.8-7.7); Neut % (Auto) 83.8 % (16.0-70.0); Platelet Count 110 th/mm3 (150-450); Red Blood Count 4.08 mil/mm3 (4.50-5.90); Red Cell Distribution Width 14.3 % (11.6-17.2); White Blood Count 18.4 th/mm3 (4.0-11.0)
[2018-04-02 07:28] LABS: Platelet Morphology Normal (Normal); RBC Morphology Normal (Normal)
--- NOTE | 2018-04-02 08:46 | P.PNIM ---
Subjective Interval history: 77-year-old male who is seen examined today for follow-up on fall, pneumonia, contusion. Patient still with significant blunting of his respirations due to pain from the rib fracture. Patient with continued hypoxia with O2 sats 86-89% on room air. Vital signs are stable. Patient remains afebrile. Physical Exam Vital signs: Vital Signs 04/01/18 11:18 04/01/18 12:00 04/01/18 12:15 Temperature 98.9 F Pulse Rate 84 84 Respiratory Rate 22 Blood Pressure 113/56 L Pulse Oximetry 94 L 94 L 86 L 04/01/18 12:24 04/01/18 14:00 04/01/18 15:07 Temperature 98.2 F Pulse Rate 73 88 71 Respiratory Rate 20 22 18 Blood Pressure 121/62 118/53 L 107/55 L Pulse Oximetry 93 L 96 96 04/01/18 15:08 04/01/18 15:37 04/01/18 16:00 Temperature 97.5 F L Pulse Rate 71 71 77 Respiratory Rate 20 22 Blood Pressure 112/54 L 117/57 L Pulse Oximetry 95 95 92 L 04/01/18 17:03 04/01/18 19:12 04/01/18 20:00 Temperature 98.1 F Pulse Rate 79 Respiratory Rate 19 18 Blood Pressure 125/80 Pulse Oximetry 97 98 04/02/18 00:00 Temperature 98 F Pulse Rate 85 Respiratory Rate 16 Blood Pressure 125/58 L Pulse Oximetry 91 L Intake & Output 04/01/18 04/02/18 04/02/18 18:59 06:59 18:59 Intake Total 380 / 380 1000 / 1000 Output Total 500 / 500 Balance 380 / 380 500 / 500 Weight 102.076 kg 104.6 kg Intake: IV 380 / 380 1000 / 1000 NS Inj 1,000 ML @ 80 mls/hr IV. 50 / 50 1000 / 1000 CONT .[id number] [facility]OSA Rx#: [id number] Azithromycin Inj 500 MG In NS 250 / 250 Inj 250 ML @ 250 mls/hr IV.SIG ONCE ONE Rx#:[id number] Rocephin Inj 1,000 MG In NS Inj 80 / 80 100 ML @ 200 mls/hr IV.SIG ONCE ONE Rx#:[id number] Output: Urine 500 / 500 Other: Date of Last Bowel Movement 03/31/18 03/31/18 Weight On Admission 102.076 kg Narrative: GENERAL: Well-developed, well-nourished, in no acute distress. alert and orientated HEENT: Head is normocephalic without any lesions or masses noted. Facial features are symmetric. Eyes: Extraocular muscles are intact. Conjunctivae were clear. NECK: Supple without any masses. Trachea midline no deviation. No JVD, CARDIAC: Regular rhythm, regular rate. S1/S2 are heard. No murmurs gallops or rubs. LUNGS: Clear to auscultation bilaterally. No wheeze, rhonchi or rales. No use of accessory muscles on inspiration or expiration. ABDOMEN: Soft, nontender. Nondistended. Bowel sounds heard in all 4 quadrants. No organomegaly or masses. Negative rebound, negative guarding EXTREMITIES: No edema, pulses are equal bilaterally. No cyanosis or clubbing NEUROLOGY: Mood and affect appear appropriate. Cranial nerves II through XII grossly intact. Moving all extremities, speech is clear Results Labs CBC & Chem 7: 04/02/18 05:30 04/02/18 05:30 Imaging Imaging: Impressions Chest X-Ray 04/01/18 11:39 CONCLUSION: Airspace disease in the lower left lung as above. CT pending. Abdomen/Pelvis CT 04/01/18 11:40 CONCLUSION: 1. Mildly displaced right posterior 10th and 11th rib fractures without hemopneumothorax or pneumothorax. 2. Patchy airspace disease left lung base most characteristic of pneumonia or aspiration. 3. Previous cholecystectomy. Mild fatty liver. No acute traumatic injury identified within the abdomen and pelvis. Cervical Spine CT 04/01/18 11:40 CONCLUSION: 1. At C2-3 there is a left paracentral disc protrusion with left lateral recess stenosis. 2. Degenerative changes as above in the remainder of the cervical spine with previous fusion at C5-6-7 with anterior plate and screw fixation. 3. No acute fracture or spondylolisthesis. 4. Previous surgery in the left auditory canal and mastoid region with abnormal soft tissue in the area of the mastoids. Head CT 04/01/18 11:40 CONCLUSION: 1. No acute findings. Chronic moderate white matter ischemic changes. Implanted device just external to left parietal calvarium. . . Chest CT 04/01/18 11:43 CONCLUSION: 1. Mildly displaced fractures through the right 10th and 11th ribs posteriorly without pneumothorax or hemothorax. 2. Patchy airspace disease in the contralateral left lung. Primary differential diagnosis includes aspiration and pneumonia. Contusion less likely. 3. Old healed sternal fracture. No mediastinal hematoma. Lumbar Spine CT 04/01/18 11:43 CONCLUSION: 1. No acute bony abnormalities within the lumbar spine. Degenerative changes as above. Thoracic Spine CT 04/01/18 11:43 CONCLUSION: 1. Right posterior 10th and 11th rib fractures. No thoracic spine fracture or subluxation. Knee X-Ray 04/01/18 11:47 CONCLUSION: Moderate osteoarthritis. No acute bony abnormality. Assessment and Plan Plan Sepsis Patient continues to meet criteria with leukocytosis, tachypnea, patchy airspace disease by CT Patient was started on empirical antibiotics include Rocephin and Zithromax Continue to follow blood cultures Continue to follow CBC Lactic acid level was normal Patchy airspace disease of the left lung status post fall with trauma to bilateral back and immediate hemoptysis resulting in hypoxia 10th and 11th right-sided rib fractures Possible pulmonary contusion on the left Continue O2 supplementation maintain O2 sat greater than 92% Continue treatment for community-acquired pneumonia Duo nebs as needed for shortness of breath or wheeze Pain control Incentive spirometry Follow-up chest x-ray was reviewed and compared to previous x-ray and indicating deterioration in the appearance DVT prevention Sequential compression devices Avoid chemical prophylaxis secondary to hemoptysis Discussed Condition With: Patient, nursing staff, Dr. Iqbal Progress Note: Quality VTE Deep Vein Thrombosis/Pulmonary Embolism Present on Admission: No
[2018-04-02] MEDS: Lactobacillus Acidophilus/L. Spores Tablet PO SCH ×3 (08:58→17:43)
--- NOTE | 2018-04-02 08:58 | XR ---
EXAM DATE: 04/02/2018 8:44 AM EST AGE/SEX: 77 years / Male INDICATIONS: . Patient presents with cough, pain and hemoptysis. CLINICAL DATA: This is the patient's subsequent encounter. Patient reports that signs and symptoms h ave been present for 4 - 6 days and indicates a pain score of 7/10. MEDICAL/SURGICAL HISTORY: . Hypertension. Cholecystectomy. Orthopedic surgery. Neck surgery. C ochlear implant. . COMPARISON: [facility], CHEST 1V SINGLE AP, 04/01/2018. . FINDINGS: Patchy airspace disease remains in the left lung. There is some elevation right hemidiaphragm with in creasing parental changes right base The heart is enlarged. Poor vascularity is normal. Degenerative changes are present about both should ers. CONCLUSION: Deterioration in the appearance of the chest with increasing parental changes in the left lung and ri ght base. Findings in the right base are new. Electronically signed by: Pierce Lazo MD Board Certified Radiologist 04/02/2018 8:56 AM EST
[2018-04-02] MEDS: Azithromycin Inj 500 MG in Sodium Chlor 0.9% Inj 250 ML IV.SIG SCH (13:49)
[2018-04-03] MEDS: Benzonatate 100 MG Capsule PO PRN ×3 (03:38→20:17)
[2018-04-03 06:23] LABS: Baso % (Auto) 0.2 % (0.0-2.0); Eos # (Auto) 0.1 th/mm3 (0.0-0.4); Eos % (Auto) 0.4 % (0.0-4.0); Hematocrit 37.7 % (39.0-51.0); Hemoglobin 12.4 gm/dL (13.0-17.0); Lymph # (Auto) 1.5 th/mm3 (1.0-4.8); Lymph % (Auto) 9.5 % (9.0-44.0); Mean Corpuscular Hemoglobin 28.9 pg (27.0-34.0); Mean Corpuscular Volume 87.7 fL (80.0-100.0); Mean Platelet Volume 10.7 fL (7.0-11.0); Mono # (Auto) 0.9 th/mm3 (0.0-0.9); Mono % (Auto) 5.5 % (0.0-8.0); Neut # (Auto) 13.3 th/mm3 (1.8-7.7); Neut % (Auto) 84.4 % (16.0-70.0); Platelet Count 119 th/mm3 (150-450); White Blood Count 15.8 th/mm3 (4.0-11.0)
[2018-04-03 06:34] LABS: Potassium 3.6 meq/L (3.5-5.1)
[2018-04-03 06:42] LABS: Calcium 8.1 mg/dL (8.5-10.1)
[2018-04-03 06:43] LABS: Carbon Dioxide 29.1 meq/L (21.0-32.0)
[2018-04-03] MEDS: Lactobacillus Acidophilus/L. Spores Tablet PO SCH ×3 (07:49→17:05)
[2018-04-03] MEDS: Sod Chloride 0.9% Inj 1,000 ML IV.CONT SCH (07:50)
--- NOTE | 2018-04-03 09:29 | P.PNIM ---
Subjective Interval history: Interval history: 77-year-old male who is seen examined today for follow-up on fall, pneumonia, contusion. Patient still with significant pain and blunting with breathing secondary to his pain from the rib fracture. Does state he has some hemoptysis this morning. Patient with continued hypoxia with O2 sats 88-89% on room air. Vital signs are stable. Patient remains afebrile. No other complaints. Encourage use of incentive spirometer. Encouraged increase in activity. Physical Exam Vital signs: Vital Signs 04/02/18 12:00 04/02/18 16:00 04/02/18 20:00 Temperature 98.8 F 99.8 F H 98.0 F Pulse Rate 72 79 76 Respiratory Rate 20 20 18 Blood Pressure 125/60 151/66 H 115/65 Pulse Oximetry 91 L 88 L 93 L 04/02/18 20:50 04/03/18 00:00 04/03/18 02:24 Temperature 97.8 F Pulse Rate 90 82 Respiratory Rate 18 20 Blood Pressure 151/89 H Pulse Oximetry 92 L 94 L 04/03/18 07:49 Temperature Pulse Rate Respiratory Rate Blood Pressure Pulse Oximetry 91 L Intake & Output 04/02/18 04/03/18 04/03/18 18:59 06:59 18:59 Intake Total 740 / 740 240 / 240 900 / 900 Output Total 1300 / 1300 2475 / 2475 Balance -560 / -560 -2235 / -2235 900 / 900 Weight 107.4 kg Intake: IV 400 / 400 900 / 900 NS Inj 1,000 ML @ 80 mls/hr IV. 50 / 50 900 / 900 CONT .[id number] [facility] Rx#: [id number] Azithromycin Inj 500 MG In NS 250 / 250 Inj 250 ML @ 250 mls/hr IV.SIG Q24H [facility] Rx#:[id number] Rocephin Inj 1,000 MG In NS Inj 100 / 100 100 ML @ 200 mls/hr IV.SIG Q24H [facility] Rx#:[id number] Oral 340 / 340 240 / 240 Output: Urine 1300 / 1300 2475 / 2475 Other: # Voids 2 3 Date of Last Bowel Movement 04/01/18 03/31/18 Narrative: GENERAL: Well-developed, well-nourished, in no acute distress. alert and orientated HEENT: Head is normocephalic without any lesions or masses noted. Facial features are symmetric. Eyes: Extraocular muscles are intact. Conjunctivae were clear. NECK: Supple without any masses. Trachea midline no deviation. No JVD, CARDIAC: Regular rhythm, regular rate. S1/S2 are heard. No murmurs gallops or rubs. LUNGS: Clear to auscultation bilaterally. No wheeze, rhonchi or rales. No use of accessory muscles on inspiration or expiration. Palpation in right upper chest and back ABDOMEN: Soft, nontender. Nondistended. Bowel sounds heard in all 4 quadrants. No organomegaly or masses. Negative rebound, negative guarding EXTREMITIES: No edema, pulses are equal bilaterally. No cyanosis or clubbing NEUROLOGY: Mood and affect appear appropriate. Cranial nerves II through XII grossly intact. Moving all extremities, speech is clear Results Labs CBC & Chem 7: 04/03/18 05:40 04/03/18 05:40 Labs: Microbiology 04/01/18 13:30 Blood - Peripheral Aerobic Blood Culture - Preliminary No growth in 1 day 04/01/18 13:30 Blood - Peripheral Anaerobic Blood Culture - Preliminary No growth in 1 day 04/01/18 13:50 Blood - Peripheral Aerobic Blood Culture - Preliminary No growth in 1 day 04/01/18 13:50 Blood - Peripheral Anaerobic Blood Culture - Preliminary No growth in 1 day Assessment and Plan Plan Sepsis Patient continues to meet criteria with leukocytosis, tachypnea, patchy airspace disease by CT Patient was started on empirical antibiotics include Rocephin and Zithromax Continue to follow blood cultures Continue to follow CBC Lactic acid level was normal Patchy airspace disease of the left lung status post fall with trauma to bilateral back and immediate hemoptysis resulting in hypoxia 10th and 11th right-sided rib fractures Possible pulmonary contusion on the left Continue O2 supplementation maintain O2 sat greater than 92%. Currently on 2-1 /2 L nasal cannula. Wean as tolerated. Continue treatment for community-acquired pneumonia Duo nebs as needed for shortness of breath or wheeze Pain control Incentive spirometry. Encourage increase in activity. Follow-up chest x-ray was reviewed and compared to previous x-ray and indicating deterioration in the appearance. -Supportive care. Continue to follow. DVT prevention Sequential compression devices Avoid chemical prophylaxis secondary to hemoptysis Discussed Condition With: Patient, nursing staff, Dr. Pontey Progress Note: Quality VTE Deep Vein Thrombosis/Pulmonary Embolism Present on Admission: No
[2018-04-03] MEDS: Azithromycin Inj 500 MG in Sodium Chlor 0.9% Inj 250 ML IV.SIG SCH (14:01)
[2018-04-03] MEDS: Acetaminophen 325 MG Tablet PO PRN (20:17)
[2018-04-04] MEDS: Benzonatate 100 MG Capsule PO PRN ×3 (04:10→23:48)
[2018-04-04 06:44] LABS: Baso % (Auto) 0.3 % (0.0-2.0); Eos # (Auto) 0.1 th/mm3 (0.0-0.4); Eos % (Auto) 0.9 % (0.0-4.0); Hematocrit 36.9 % (39.0-51.0); Hemoglobin 12.4 gm/dL (13.0-17.0); Lymph # (Auto) 1.2 th/mm3 (1.0-4.8); Lymph % (Auto) 8.3 % (9.0-44.0); Mean Corpuscular HGB Conc 33.7 % (32.0-36.0); Mean Corpuscular Volume 86.1 fL (80.0-100.0); Mean Platelet Volume 10.3 fL (7.0-11.0); Mono # (Auto) 0.9 th/mm3 (0.0-0.9); Mono % (Auto) 5.8 % (0.0-8.0); Neut # (Auto) 12.8 th/mm3 (1.8-7.7); Neut % (Auto) 84.7 % (16.0-70.0); Platelet Count 121 th/mm3 (150-450); Red Blood Count 4.29 mil/mm3 (4.50-5.90); Red Cell Distribution Width 14.2 % (11.6-17.2); White Blood Count 14.9 th/mm3 (4.0-11.0)
[2018-04-04] MEDS: Lactobacillus Acidophilus/L. Spores Tablet PO SCH ×4 (08:02→18:32)
--- NOTE | 2018-04-04 08:17 | P.DS ---
DS: Providers Date of admission: 04/01/18 14:40 Primary care physician: Minal Rainey MD Brief History from admission: CT of the [id number] male with known history of hypertension who presented to the emergency department for evaluation of hemoptysis status post fall in the shower. Patient states that he was in his normal state of health until this morning when he was taking a shower. He states that he slipped and he fell backwards landing on a bench in the shower across his bilateral back. Patient states that he thinks he hit his head and may have had a very quick episode of loss of consciousness. His came in and helped him back to his feet and then he started having cough with blood-streaked sputum. Because of that he came to the emergency department for evaluation. Patient had extensive radiological workup and found to have 2 displaced fracture ribs on the right 10th and 11th. CT of the chest was performed and rather impressive with completely normal lung brantley on the right however significant patchy airspace disease on the left lung which radiologist indicating aspiration and/or pneumonia, contusion less likely. However given the patient clinically presenting with the back pain, hemoptysis, hypoxia. Contusion will be higher on the differential. Patient also with findings consistent with sepsis. Leukocytosis, tachypnea, patchy airspace disease in the left lung. Patient denies any previous constitutional symptoms to include fever, chills, cough, congestion, rhinorrhea. Patient had immediate hemoptysis after fall with landing on a bench across his bilateral posterior lung. DS: Summary Time Spent with Patient Total time spent providing and/or coordinating discharge services: Quality: VTE Deep Vein Thrombosis/Pulmonary Embolism Present on Admission: No Results Labs on day of discharge: Labs from last 24 hours 04/04/18 06:10 CBC w Diff Auto diff final WBC 14.9 H RBC 4.29 L Hgb 12.4 L Hct 36.9 L MCV 86.1 MCH 29.0 MCHC 33.7 RDW 14.2 Plt Count 121 L MPV 10.3 Neut % (Auto) 84.7 H Lymph % (Auto) 8.3 L [place] % (Auto) 5.8 Eos % (Auto) 0.9 Baso % (Auto) 0.3 Neut # (Auto) 12.8 H Lymph # (Auto) 1.2 [place] # (Auto) 0.9 Eos # (Auto) 0.1 Baso # (Auto) 0.0 WBC Differential . Differential Comment . Preliminary micro results at discharge 04/01/18 13:30 Aerobic Blood Culture - Preliminary Blood - Peripheral No growth in 2 days Anaerobic Blood Culture - Preliminary No growth in 2 days 04/01/18 13:50 Aerobic Blood Culture - Preliminary Blood - Peripheral No growth in 2 days Anaerobic Blood Culture - Preliminary No growth in 2 days Impressions ITS Impressions Abdomen/Pelvis CT 04/01/18 11:40 CONCLUSION: 1. Mildly displaced right posterior 10th and 11th rib fractures without hemopneumothorax or pneumothorax. 2. Patchy airspace disease left lung base most characteristic of pneumonia or aspiration. 3. Previous cholecystectomy. Mild fatty liver. No acute traumatic injury identified within the abdomen and pelvis. Cervical Spine CT 04/01/18 11:40 CONCLUSION: 1. At C2-3 there is a left paracentral disc protrusion with left lateral recess stenosis. 2. Degenerative changes as above in the remainder of the cervical spine with previous fusion at C5-6-7 with anterior plate and screw fixation. 3. No acute fracture or spondylolisthesis. 4. Previous surgery in the left auditory canal and mastoid region with abnormal soft tissue in the area of the mastoids. Head CT 04/01/18 11:40 CONCLUSION: 1. No acute findings. Chronic moderate white matter ischemic changes. Implanted device just external to left parietal calvarium. . . Chest CT 04/01/18 11:43 CONCLUSION: 1. Mildly displaced fractures through the right 10th and 11th ribs posteriorly without pneumothorax or hemothorax. 2. Patchy airspace disease in the contralateral left lung. Primary differential diagnosis includes aspiration and pneumonia. Contusion less likely. 3. Old healed sternal fracture. No mediastinal hematoma. Lumbar Spine CT 04/01/18 11:43 CONCLUSION: 1. No acute bony abnormalities within the lumbar spine. Degenerative changes as above. Thoracic Spine CT 04/01/18 11:43 CONCLUSION: 1. Right posterior 10th and 11th rib fractures. No thoracic spine fracture or subluxation. Knee X-Ray 04/01/18 11:47 CONCLUSION: Moderate osteoarthritis. No acute bony abnormality. Chest X-Ray 04/02/18 06:00 CONCLUSION: Deterioration in the appearance of the chest with increasing parental changes in the left lung and right base. Findings in the right base are new. Discharge Plan Discharge Disposition Patient Disposition: 06 Disch W/Home Health Service Discharge Condition Condition: Stable Discharge Order Discharge Orders: Discharge Order (Routine); Ordered 04/04/18 Ordered By: Maura Mai Discharge Details Anticipated Discharge Date: 04/04/18 Discharge Comment: dc p walk test Physicians Team Primary Care Provider: Minal Rainey Attending Provider: Ulisses Webb Rxs /Orders / Referrals /Forms Prescriptions: New metoprolol succinate 50 mg Tablet Extended Release 24 Hr 50 mg PO BID Qty: 60 RF: 0 hydrocodone-acetaminophen 5-325 mg Tablet 1 tab PO Q4H PRN (Reason: Pain 3 to 6) Qty: 10 RF: 0 pantoprazole 40 mg Tablet,Delayed Release (Dr/Ec) 40 mg PO DAILY Qty: 14 RF: 0 acidophilus-sporogenes [Acidophilus Ex Str (L. sporog)] 35 million- 25 million cell Tablet 1 tab PO TID Qty: 21 RF: 0 Continue Alreds 1 tab PO BID RF: 0 ascorbic acid (vitamin C) [Vitamin C] 1,000 mg Tablet 500 mg PO BID RF: 0 tamsulosin [Flomax] 0.4 mg Capsule 0.4 mg PO DAILY RF: 0 coenzyme Q10 [CoQ-10] 100 mg Capsule 300 mg PO DAILY RF: 0 cholecalciferol (vitamin D3) [Vitamin D3] 1,000 unit Tablet 1,000 unit PO DAILY RF: 0 vit [id number]-fympuvgm [B Complex] 1.7-20-2-1.2 mg/mL Liquid 1 tab Sublingual RF: 0 lpyls-1x-xog-epa-fish oil [[place]-3 Fish Oil] 300-1,000 mg Capsule 1,200 mg PO DAILY RF: 0 Tumeric 1,500 mg PO QID RF: 0 No Action Aspir-81 1 tab PO DAILY RF: 0 Lantoprost 1 drop ophthalmic (eye) HS RF: 0 metoprolol succinate 50 mg PO BID RF: 0 omeprazole 40 mg PO DAILY RF: 0 Referrals: Minal Rainey MD [Primary Care Provider] - 04/11/18 12:00 am Discharge Interventions Interventions: Discharge Planning - Case Management Last Done: 04/02/18 11:16 Status ED Status: Left Department
--- NOTE | 2018-04-04 08:36 | P.PNIM ---
Subjective Interval history: Interval history: Interval history: 77-year-old male who is seen examined today for follow-up on fall, pneumonia, contusion. Patient seen and examined, sitting on side of bed, using simple mask overnight. Walked with PT with oxygen saturations down to 85%. Patient still complains of blunting with inspiration. Not ready to be discharged. Vital signs stable. Afebrile. Physical Exam Vital signs: Vital Signs 04/03/18 12:00 04/03/18 16:00 04/03/18 20:00 Temperature 100.2 F H 99.2 F 101.2 F H Pulse Rate 87 84 85 Respiratory Rate 21 21 18 Blood Pressure 145/90 H 149/65 H 192/84 H Pulse Oximetry 95 95 84 L 04/03/18 22:17 04/04/18 00:00 04/04/18 01:30 Temperature 97.6 F Pulse Rate 74 Respiratory Rate 18 18 Blood Pressure 144/74 H Pulse Oximetry 90 L 91 L 04/04/18 08:00 04/04/18 08:05 04/04/18 08:06 Temperature 96.8 F L Pulse Rate 72 Respiratory Rate 20 Blood Pressure 191/89 H 180/84 H Pulse Oximetry 93 L 93 L Intake & Output 04/03/18 04/04/18 04/04/18 18:59 06:59 18:59 Intake Total 2250 / 2250 90 / 90 Output Total 1350 / 1350 2100 / 2100 Balance 900 / 900 -2009 Weight 107.1 kg Intake: IV 1550 / 1550 NS Inj 1,000 ML @ 80 mls/hr IV. 1200 / 1200 CONT .[id number] [facility] Rx#: [id number] Azithromycin Inj 500 MG In NS 250 / 250 Inj 250 ML @ 250 mls/hr IV.SIG Q24H [facility] Rx#:[id number] Rocephin Inj 1,000 MG In NS Inj 100 / 100 100 ML @ 200 mls/hr IV.SIG Q24H [facility] Rx#:[id number] Oral 700 / 700 90 / 90 Output: Urine 1350 / 1350 2100 / 2100 Other: Date of Last Bowel Movement 03/31/18 04/01/18 Narrative: GENERAL: Well-developed, well-nourished, in no acute distress. alert and orientated HEENT: Head is normocephalic without any lesions or masses noted. Facial features are symmetric. Eyes: Extraocular muscles are intact. Conjunctivae were clear. NECK: Supple without any masses. Trachea midline no deviation. No JVD, CARDIAC: Regular rhythm, regular rate. S1/S2 are heard. No murmurs gallops or rubs. LUNGS: Clear to auscultation bilaterally. No wheeze, rhonchi or rales. No use of accessory muscles on inspiration or expiration. Some pain in the right upper back ABDOMEN: Soft, nontender. Nondistended. Bowel sounds heard in all 4 quadrants. No organomegaly or masses. Negative rebound, negative guarding EXTREMITIES: No edema, pulses are equal bilaterally. No cyanosis or clubbing NEUROLOGY: Mood and affect appear appropriate. Cranial nerves II through XII grossly intact. Moving all extremities, speech is clear Results Labs CBC & Chem 7: 04/04/18 06:10 04/03/18 05:40 Labs: Microbiology 04/01/18 13:30 Blood - Peripheral Aerobic Blood Culture - Preliminary No growth in 2 days 04/01/18 13:30 Blood - Peripheral Anaerobic Blood Culture - Preliminary No growth in 2 days 04/01/18 13:50 Blood - Peripheral Aerobic Blood Culture - Preliminary No growth in 2 days 04/01/18 13:50 Blood - Peripheral Anaerobic Blood Culture - Preliminary No growth in 2 days Assessment and Plan Plan Sepsis Patient continues to meet criteria with leukocytosis, tachypnea, patchy airspace disease by CT Patient was started on empirical antibiotics include Rocephin and Zithromax Continue to follow blood cultures, negative to date. Continue to follow CBC Lactic acid level was normal Patchy airspace disease of the left lung status post fall with trauma to bilateral back and immediate hemoptysis resulting in hypoxia 10th and 11th right-sided rib fractures Possible pulmonary contusion on the left Continue O2 supplementation maintain O2 sat greater than 92%. Currently on 3 L nasal cannula. Wean as tolerated. Continue treatment for community-acquired pneumonia Duo nebs as needed for shortness of breath or wheeze Pain control Incentive spirometry. Encourage increase in activity. Follow-up chest x-ray was reviewed and compared to previous x-ray and indicating deterioration in the appearance. Chest x-ray repeated this morning, does show some improvement. -Supportive care. Continue to follow. DVT prevention Sequential compression devices Avoid chemical prophylaxis secondary to hemoptysis Discussed Condition With: Patient, nursing staff, Dr. Webb Awaiting clinical improvement for discharge. Progress Note: Quality VTE Deep Vein Thrombosis/Pulmonary Embolism Present on Admission: No
--- NOTE | 2018-04-04 09:01 | XR ---
EXAM DATE: 04/04/2018 8:58 AM EST AGE/SEX: 77 years / Male INDICATIONS: Pneumonia. Short of breath. CLINICAL DATA: This is the patient's initial encounter. Patient reports that signs and symptoms have been present for 4 - 6 days and indicates a pain score of 0/10. MEDICAL/SURGICAL HISTORY: Hypertension. Cholecystectomy. Cochlear implant. Neck surgery. COMPARISON: [facility], CHEST 2V AP&LAT, 04/02/2018. . FINDINGS: The heart is enlarged. Persistent alveolar airspace disease remains in the left lung. Right lung is c learing. Heart remains enlarged without significant failure or pleural effusion. CONCLUSION: Interval improvement as above. Persistent airspace disease remains however in the left lung. Electronically signed by: Pierce Lazo MD Board Certified Radiologist 04/04/2018 9:00 AM EST
[2018-04-04] MEDS ORDERED: Lisinopril 10 MG Tablet PO SCH (11:45)
[2018-04-04] MEDS: Azithromycin Inj 500 MG in Sodium Chlor 0.9% Inj 250 ML IV.SIG SCH (14:10)
[2018-04-04] MEDS: Acetaminophen 325 MG Tablet PO PRN (23:48)
[2018-04-05] MEDS: Lactobacillus Acidophilus/L. Spores Tablet PO SCH ×3 (09:49→17:25)
[2018-04-05] MEDS: amLODIPine 10 MG Tablet PO SCH (09:49)
[2018-04-05] MEDS: Benzonatate 100 MG Capsule PO PRN (09:54)
--- NOTE | 2018-04-05 11:38 | P.PNIM ---
Subjective Interval history: Follow-up rib contusion, rib fracture, pneumonia fall at home. Patient seen and examined, sitting up in chair on 4 L nasal cannula. at bedside as well and updated. Patient states he has continued pain intermittently, is relieved with pain medication when he does take it. He does state that he has been coughing with some blood-tinged sputum although this has definitely improved since presentation. Afebrile overnight. Vital signs are stable. Awaiting pulmonary input. Patient is doing well with PT and walking without any issues, although is still hypoxic requiring increased O2. Physical Exam Vital signs: Vital Signs 04/04/18 12:00 04/04/18 14:17 04/04/18 16:00 Temperature 99.6 F 99.3 F Pulse Rate 79 80 Respiratory Rate 18 20 Blood Pressure 160/88 H 140/70 163/79 H Pulse Oximetry 94 L 93 L Pulse Oximetry [Resting on Room Air] Pulse Oximetry [Resting with Oxygen] 04/04/18 20:00 04/04/18 20:32 04/05/18 00:00 Temperature 99.8 F H 100.3 F H Pulse Rate 76 77 Respiratory Rate 22 20 Blood Pressure 124/96 H 183/87 H Pulse Oximetry 90 L 94 L 91 L Pulse Oximetry [Resting on Room Air] Pulse Oximetry [Resting with Oxygen] 04/05/18 04:00 04/05/18 07:34 04/05/18 07:36 Temperature 97.2 F L Pulse Rate 70 Respiratory Rate 20 Blood Pressure 173/87 H Pulse Oximetry 93 L 92 L Pulse Oximetry [Resting on Room Air] 86 L Pulse Oximetry [Resting with Oxygen] 92 L 04/05/18 08:00 Temperature 97.5 F L Pulse Rate 70 Respiratory Rate 20 Blood Pressure 155/79 H Pulse Oximetry 97 Pulse Oximetry [Resting on Room Air] Pulse Oximetry [Resting with Oxygen] Intake & Output 04/04/18 04/05/18 04/05/18 18:59 06:59 18:59 Intake Total 1310 / 1310 845 / 845 Output Total 225 / 225 1400 / 1400 600 / 600 Balance 1085 / 1085 -555 / -555 -600 / -600 Weight 107 kg Intake: IV 350 / 350 Azithromycin Inj 500 MG In NS 250 / 250 Inj 250 ML @ 250 mls/hr IV.SIG Q24H [facility] Rx#:[id number] Rocephin Inj 1,000 MG In NS Inj 100 / 100 100 ML @ 200 mls/hr IV.SIG Q24H [facility] Rx#:[id number] Oral 960 / 960 845 / 845 Output: Urine 225 / 225 1400 / 1400 600 / 600 Other: # Voids 4 1 Date of Last Bowel Movement 04/01/18 04/01/18 # Bowel Movements 0 Narrative: GENERAL: Well-developed, well-nourished, in no acute distress. alert and orientated HEENT: Head is normocephalic without any lesions or masses noted. Facial features are symmetric. Eyes: Extraocular muscles are intact. Conjunctivae were clear. NECK: Supple without any masses. Trachea midline no deviation. No JVD, CARDIAC: Regular rhythm, regular rate. S1/S2 are heard. No murmurs gallops or rubs. LUNGS: Rhonchi throughout. No use of accessory muscles on inspiration or expiration. Some pain in the right upper back ABDOMEN: Soft, nontender. Nondistended. Bowel sounds heard in all 4 quadrants. No organomegaly or masses. Negative rebound, negative guarding EXTREMITIES: No edema, pulses are equal bilaterally. No cyanosis or clubbing NEUROLOGY: Mood and affect appear appropriate. Cranial nerves II through XII grossly intact. Moving all extremities, speech is clear Results Labs CBC & Chem 7: 04/04/18 06:10 04/03/18 05:40 Labs: Microbiology 04/01/18 13:30 Blood - Peripheral Aerobic Blood Culture - Preliminary No growth in 4 days 04/01/18 13:30 Blood - Peripheral Anaerobic Blood Culture - Preliminary No growth in 4 days 04/01/18 13:50 Blood - Peripheral Aerobic Blood Culture - Preliminary No growth in 4 days 04/01/18 13:50 Blood - Peripheral Anaerobic Blood Culture - Preliminary No growth in 4 days Assessment and Plan Plan Sepsis Patient continues to meet criteria with leukocytosis, tachypnea, patchy airspace disease by CT Patient was started on empirical antibiotics include Rocephin and Zithromax Continue to follow blood cultures, negative to date. Continue to follow CBC Lactic acid level was normal Patchy airspace disease of the left lung status post fall with trauma to bilateral back and immediate hemoptysis resulting in hypoxia 10th and 11th right-sided rib fractures Possible pulmonary contusion on the left Continue O2 supplementation maintain O2 sat greater than 92%. Currently on 4 L nasal cannula. Wean as tolerated. Continue treatment for community-acquired pneumonia Duo nebs as needed for shortness of breath or wheeze Pain control Incentive spirometry. Encourage increase in activity. Follow-up chest x-ray was reviewed and compared to previous x-ray and indicating deterioration in the appearance. -Chest x-ray repeated 04/04/18, does show some improvement. -Pulmonary has been consulted, awaiting input and recommendations. Patient continues to be hypoxic and needed 4 L nasal cannula. Added Mucinex. May need bronchoscopy depending on pulmonary input. -Supportive care. Continue to follow. DVT prevention Sequential compression devices Avoid chemical prophylaxis secondary to hemoptysis Discussed Condition With: Patient, nursing staff, Dr. Webb Progress Note: Quality VTE Deep Vein Thrombosis/Pulmonary Embolism Present on Admission: No
[2018-04-05] MEDS: guaiFENesin 600 MG ER Tablet PO SCH ×2 (13:44→21:39)
[2018-04-05] MEDS: Azithromycin Inj 500 MG in Sodium Chlor 0.9% Inj 250 ML IV.SIG SCH (13:45)
--- NOTE | 2018-04-05 14:41 | MB ---
cc: Felicity Blevins MD DATE: 04/05/2018 REASON FOR CONSULTATION: Rib fracture, pneumonia. HISTORY OF PRESENT ILLNESS: The patient is a 77-year-old male with a remote smoking history who had fallen in the shower and had subsequent rib fractures. The patient was hospitalized for same. The patient is without shortness of breath, fever or chills. He does have hypoxemia on oxygen by nasal cannula. PAST MEDICAL HISTORY: Hypertension. Previous multiple surgeries. Foot, neck, thumb, rotator cuff, cataracts and cholecystectomy. Obstructive sleep apnea. FAMILY HISTORY: Noncontributory. SOCIAL HISTORY: Twenty pack-years, has not smoked in 40 years. Drinks alcohol socially. No TB, no industrial exposure. REVIEW OF SYSTEMS: A 12-point review of systems as per HPI and past history, otherwise negative. ALLERGIES: CLINDAMYCIN, PENICILLIN. CURRENT MEDICATIONS: 1. DuoNeb. 2. Amlodipine. 3. Zithromax. 4. Ceftriaxone. 5. Vasotec. 6. Mucinex. 7. Metoprolol. 8. Zofran p.r.n. PHYSICAL EXAMINATION: GENERAL: The patient is alert. VITAL SIGNS: Temperature 97.5, pulse 70, respirations 20, blood pressure 158, oxygen saturation 92% on 4 liters nasal cannula. HEENT: Unremarkable. Eyes without icterus. NECK: Without adenopathy, thyroid enlargement. Central trachea. CHEST: Decreased breath sounds at right base. CARDIAC: PMI not appreciated. S1, S2 audible. No murmur. No rub. ABDOMEN: Lax, audible bowel sounds. PSYCHIATRIC: No clubbing, cyanosis, or edema. DIAGNOSTIC DATA: CT scan of the chest with a mildly displaced fracture of the 10th and 11th right ribs, patchy infiltrate in the opposite lung. Last chest x-ray done 04/04/2018 with improvement in chest x-ray findings: White count 16,000, hemoglobin 13. Sodium 137, potassium 3.6, BUN 12, creatinine 0.8. IMPRESSION: 1. Traumatic rib fractures, right 10th and 11th ribs. 2. Left lung infiltrate. 3. Minor hemoptysis. PLAN: The patient is receiving antibiotic therapy for probable underlying pneumonia. For the most part, he is a nonsmoker. However, when the chest pain is less and her ribs are healed, pulmonary function would be appropriate to assess his pulmonary performance and if there is any underlying airway obstruction. Meanwhile, he is to continue using his CPAP therapy and it would be advisable to have him bring the CPAP machine from home and use it while sleeping. His hypoxemia seems acute. He has not been on oxygen therapy in the past and likely with an improvement his lung function with fracture healing, his oxygenation will start reversing. His hemoptysis minor may be related to pulmonary contusion; however, given the findings in the left lung, bronchoscopy would be appropriate to assure the absence of any underlying pulmonary abnormality. I do thank you for asking me to partake in this patient's care. Felicity Blevins MD WWW/alison , 02:17 PM , 02:28 PM
[2018-04-06] MEDS ORDERED: Ketorolac Inj 30 MG/ML (IVP) Vial IV.PUSH PRN (08:04)
[2018-04-06 08:58] LABS: ABG Base Excess 4.2 mmol/L (-2-2); ABG PCO2 40 mmHg (38-42); ABG PO2 74 mmHg (61-120)
[2018-04-06] MEDS: amLODIPine 10 MG Tablet PO SCH (09:02)
[2018-04-06] MEDS: Lactobacillus Acidophilus/L. Spores Tablet PO SCH ×3 (09:03→17:52)
[2018-04-06] MEDS: guaiFENesin 600 MG ER Tablet PO SCH ×2 (09:03→22:41)
--- NOTE | 2018-04-06 10:44 | P.PNIM ---
Subjective Interval history: Follow-up lung contusion, rib fractures, hemoptysis and pneumonia. Patient seen and examine, lying in bed in no apparent distress.he does state that he had some hallucinations overnight, he relates them possibly due to the pain medications although he only got Ultram. Patient usually uses a CPAP machine which has been requested that someone bring this to the hospital for him at night. I did an ABG just to rule out any hypercapnia which was negative and pretty much unremarkable. Patient continues on 4 L nasal cannula. Pulmonary following. Patient actually denies any shortness of breath or chest pain. Will continue monitor closely. Denies any further hallucinations. Physical Exam Vital signs: Vital Signs 04/05/18 12:00 04/05/18 16:00 04/05/18 20:00 Temperature 99.4 F 99.1 F 98.4 F Pulse Rate 73 73 77 Respiratory Rate 20 20 20 Blood Pressure 133/67 137/71 139/70 Pulse Oximetry 92 L 92 L 92 L 04/05/18 20:04 04/06/18 00:00 04/06/18 08:00 Temperature 98.2 F 96.8 F L Pulse Rate 70 66 Respiratory Rate 20 28 H Blood Pressure 146/67 H 169/95 H Pulse Oximetry 94 L 93 L 93 L 04/06/18 09:56 Temperature Pulse Rate Respiratory Rate Blood Pressure Pulse Oximetry 94 L Intake & Output 04/05/18 04/06/18 04/06/18 18:59 06:59 18:59 Intake Total 4350 / 4350 Output Total 3400 / 3400 725 / 725 Balance 950 / 950 -725 / -725 Weight 105.1 kg Intake: IV 350 / 350 Azithromycin Inj 500 MG In NS 250 / 250 Inj 250 ML @ 250 mls/hr IV.SIG Q24H [facility] Rx#:[id number] Rocephin Inj 1,000 MG In NS Inj 100 / 100 100 ML @ 200 mls/hr IV.SIG Q24H [facility] Rx#:[id number] Oral 4000 / 4000 Output: Urine 3400 / 3400 725 / 725 Other: # Voids 1 4 3 Date of Last Bowel Movement 04/05/18 04/05/18 Narrative: GENERAL: Well-developed, well-nourished, in no acute distress. alert and orientated HEENT: Head is normocephalic without any lesions or masses noted. Facial features are symmetric. Eyes: Extraocular muscles are intact. Conjunctivae were clear. NECK: Supple without any masses. Trachea midline no deviation. No JVD, CARDIAC: Regular rhythm, regular rate. S1/S2 are heard. No murmurs gallops or rubs. LUNGS: Rhonchi throughout. No use of accessory muscles on inspiration or expiration. Some pain in the right upper back ABDOMEN: Soft, nontender. Nondistended. Bowel sounds heard in all 4 quadrants. No organomegaly or masses. Negative rebound, negative guarding EXTREMITIES: No edema, pulses are equal bilaterally. No cyanosis or clubbing NEUROLOGY: Mood and affect appear appropriate. Cranial nerves II through XII grossly intact. Moving all extremities, speech is clear Results Labs CBC & Chem 7: 04/04/18 06:10 04/03/18 05:40 Labs: Microbiology 04/01/18 13:30 Blood - Peripheral Aerobic Blood Culture - Preliminary No growth in 4 days 04/01/18 13:30 Blood - Peripheral Anaerobic Blood Culture - Preliminary No growth in 4 days 04/01/18 13:50 Blood - Peripheral Aerobic Blood Culture - Preliminary No growth in 4 days 04/01/18 13:50 Blood - Peripheral Anaerobic Blood Culture - Preliminary No growth in 4 days Assessment and Plan Plan Sepsis Patient continues to meet criteria with leukocytosis, tachypnea, patchy airspace disease by CT Patient was started on empirical antibiotics include Rocephin and Zithromax Continue to follow blood cultures, negative to date. Continue to follow CBC Lactic acid level was normal Patchy airspace disease of the left lung status post fall with trauma to bilateral back and immediate hemoptysis resulting in hypoxia 10th and 11th right-sided rib fractures Possible pulmonary contusion on the left Continue O2 supplementation maintain O2 sat greater than 92%. Currently on 4 L nasal cannula. Wean as tolerated. Continue treatment for community-acquired pneumonia Duo nebs as needed for shortness of breath or wheeze Pain control Incentive spirometry. Encourage increase in activity. Follow-up chest x-ray was reviewed and compared to previous x-ray and indicating deterioration in the appearance. -Chest x-ray repeated 04/04/18, does show some improvement. -Pulmonary has been consulted, awaiting input and recommendations. Patient continues to be hypoxic and needed 4 L nasal cannula. Added Mucinex. May need bronchoscopy, will continue to monitor over the weekend, pulmonary to reevaluate on Monday with possible need for bronchoscopy if hemoptysis continues. -Supportive care. Continue to follow. DVT prevention Sequential compression devices Avoid chemical prophylaxis secondary to hemoptysis Discussed Condition With: Patient, nursing staff, Dr. Webb Progress Note: Quality VTE Deep Vein Thrombosis/Pulmonary Embolism Present on Admission: No
[2018-04-06] MEDS: Azithromycin Inj 500 MG in Sodium Chlor 0.9% Inj 250 ML IV.SIG SCH (14:21)
[2018-04-07] MEDS: guaiFENesin/Dextromethorphan 200 MG/20 MG 10 ML UDC PO PRN ×3 (05:14→18:03)
[2018-04-07 07:32] LABS: Baso # (Auto) 0.1 th/mm3 (0.0-0.2); Baso % (Auto) 0.9 % (0.0-2.0); Eos # (Auto) 0.3 th/mm3 (0.0-0.4); Eos % (Auto) 3.4 % (0.0-4.0); Hematocrit 37.2 % (39.0-51.0); Hemoglobin 12.6 gm/dL (13.0-17.0); Lymph # (Auto) 1.5 th/mm3 (1.0-4.8); Lymph % (Auto) 18.5 % (9.0-44.0); Mean Corpuscular HGB Conc 33.8 % (32.0-36.0); Mean Corpuscular Hemoglobin 29.3 pg (27.0-34.0); Mean Corpuscular Volume 86.7 fL (80.0-100.0); Mean Platelet Volume 9.6 fL (7.0-11.0); Neut # (Auto) 5.4 th/mm3 (1.8-7.7); Neut % (Auto) 65.2 % (16.0-70.0); Platelet Count 187 th/mm3 (150-450); Red Blood Count 4.29 mil/mm3 (4.50-5.90); Red Cell Distribution Width 14.3 % (11.6-17.2); White Blood Count 8.3 th/mm3 (4.0-11.0)
[2018-04-07 07:45] LABS: Chloride 102 meq/L (98-107); Potassium 3.3 meq/L (3.5-5.1); Sodium 139 meq/L (136-145)
[2018-04-07 07:53] LABS: Calcium 8.8 mg/dL (8.5-10.1)
[2018-04-07 07:54] LABS: Albumin 2.5 g/dL (3.4-5.0); Anion Gap 7 meq/L (5-15); Blood Urea Nitrogen 13 mg/dL (7-18); Carbon Dioxide 29.9 meq/L (21.0-32.0); Glucose,Random 127 mg/dL (74-106)
[2018-04-07 07:57] LABS: Alanine Aminotransferase 90 U/L (12-78); Aspartate Aminotransferase 70 U/L (15-37); Glomerular Filtration Rate Greater Than 89 mL/min (>89)
[2018-04-07 08:00] LABS: Alkaline Phosphatase 143 U/L (45-117)
[2018-04-07] MEDS: guaiFENesin 600 MG ER Tablet PO SCH ×2 (09:43→20:52)
[2018-04-07] MEDS: amLODIPine 10 MG Tablet PO SCH (09:43)
[2018-04-07] MEDS: Lactobacillus Acidophilus/L. Spores Tablet PO SCH ×3 (09:43→18:02)
--- NOTE | 2018-04-07 12:06 | P.PNIM ---
Subjective Interval history: Follow-up fall at home, lung contusion, rib fracture and pneumonia with hypoxia. Patient seen and examined, lying in bed comfortably no apparent distress. is at bedside and updated about patient status. Patient is doing well much improved on room air with 92% oxygen saturations. Vital signs are stable overnight. Patient states he feels much improved. Eating well without any abdominal pain nausea or vomiting. Pain is well controlled. We will continue to monitor closely. Physical Exam Vital signs: Vital Signs 04/06/18 16:00 04/06/18 19:33 04/06/18 20:00 Temperature 98.2 F 97.5 F L Pulse Rate 69 71 Respiratory Rate 20 18 Blood Pressure 148/79 H 160/78 H Pulse Oximetry 93 L 94 L 93 L 04/07/18 00:00 04/07/18 00:31 04/07/18 07:00 Temperature 97.7 F Pulse Rate 73 Respiratory Rate 18 18 Blood Pressure 132/67 Pulse Oximetry 93 L 96 04/07/18 08:00 04/07/18 09:48 Temperature 97.3 F L Pulse Rate 57 L 68 Respiratory Rate 20 Blood Pressure 134/69 Pulse Oximetry 93 L Intake & Output 04/06/18 04/07/18 04/07/18 18:59 06:59 18:59 Intake Total 3350 / 3350 240 / 240 Output Total 725 / 725 350 / 350 Balance 2625 / 2625 -110 / -110 Weight 105.5 kg Intake: IV 350 / 350 Azithromycin Inj 500 MG In NS 250 / 250 Inj 250 ML @ 250 mls/hr IV.SIG Q24H [facility] Rx#:[id number] Rocephin Inj 1,000 MG In NS Inj 100 / 100 100 ML @ 200 mls/hr IV.SIG Q24H [facility] Rx#:[id number] Oral 3000 / 3000 240 / 240 Output: Urine 725 / 725 350 / 350 Other: # Voids 10 1 Date of Last Bowel Movement 04/05/18 04/06/18 # Bowel Movements 1 Narrative: GENERAL: Well-developed, well-nourished, in no acute distress. alert and orientated HEENT: Head is normocephalic without any lesions or masses noted. Facial features are symmetric. Eyes: Extraocular muscles are intact. Conjunctivae were clear. NECK: Supple without any masses. Trachea midline no deviation. No JVD, CARDIAC: Regular rhythm, regular rate. S1/S2 are heard. No murmurs gallops or rubs. LUNGS: Rhonchi throughout. No use of accessory muscles on inspiration or expiration. ABDOMEN: Soft, nontender. Nondistended. Bowel sounds heard in all 4 quadrants. No organomegaly or masses. Negative rebound, negative guarding EXTREMITIES: No edema, pulses are equal bilaterally. No cyanosis or clubbing NEUROLOGY: Mood and affect appear appropriate. Cranial nerves II through XII grossly intact. Moving all extremities, speech is clear Results Labs CBC & Chem 7: 04/07/18 06:42 04/07/18 06:42 Labs: Microbiology 04/01/18 13:30 Blood - Peripheral Aerobic Blood Culture - Final No growth in 5 days 04/01/18 13:30 Blood - Peripheral Anaerobic Blood Culture - Final No growth in 5 days 04/01/18 13:50 Blood - Peripheral Aerobic Blood Culture - Final No growth in 5 days 04/01/18 13:50 Blood - Peripheral Anaerobic Blood Culture - Final No growth in 5 days Assessment and Plan Plan Sepsis Patient met criteria with leukocytosis, tachypnea, patchy airspace disease by CT Patient was started on empirical antibiotics include Rocephin and Zithromax Continue to follow blood cultures, negative to date. Continue to follow CBC Lactic acid level was normal Patchy airspace disease of the left lung status post fall with trauma to bilateral back and immediate hemoptysis resulting in hypoxia 10th and 11th right-sided rib fractures Possible pulmonary contusion on the left Continue O2 supplementation maintain O2 sat greater than 92%. Wean as tolerated. On room air today. Continue treatment for community-acquired pneumonia Duo nebs as needed for shortness of breath or wheeze Pain control Incentive spirometry. Encourage increase in activity. Follow-up chest x-ray was reviewed and compared to previous x-ray and indicating deterioration in the appearance. -Chest x-ray repeated 04/04/18, does show some improvement. -Pulmonary has been consulted, awaiting input and recommendations. Patient continues to be hypoxic and needed 4 L nasal cannula. Added Mucinex. May need bronchoscopy, will continue to monitor over the weekend, pulmonary to reevaluate on Monday with possible need for bronchoscopy if hemoptysis continues. -Patient denies any hemoptysis. On room air today. Will recheck chest x-ray in a.m. Improving. -Supportive care. Continue to follow. DVT prevention Sequential compression devices Avoid chemical prophylaxis secondary to hemoptysis Discussed Condition With: Patient, nursing staff, Dr. Webb Progress Note: Quality VTE Deep Vein Thrombosis/Pulmonary Embolism Present on Admission: No
[2018-04-07] MEDS: Azithromycin Inj 500 MG in Sodium Chlor 0.9% Inj 250 ML IV.SIG SCH (13:31)
[2018-04-07 21:20] VITALS: RESP 18
[2018-04-08 00:20] VITALS: BP 130/60; PULSE 66; TEMP 97.9; O2SAT 94
--- NOTE | 2018-04-08 06:18 | XR ---
EXAM DATE: 04/08/2018 6:04 AM EST AGE/SEX: 77 years / Male INDICATIONS: Pneumonia. CLINICAL DATA: This is the patient's subsequent encounter. Patient reports that signs and symptoms h ave been present for 1 week and indicates a pain score of 0/10. MEDICAL/SURGICAL HISTORY: Hypertension. Sepsis. Cholecystectomy. Cochlear implant. COMPARISON: [facility], CHEST 1V SINGLE AP, 04/04/2018. . FINDINGS: A single AP view of the chest demonstrates no interval change. Scattered parenchymal consolidation pr edominantly throughout the left lung and right base. No effusions. Heart is mildly enlarged. Cervical spinal fusion plate. A degenerative thoracic spine. Degenerative changes involving the shoulders lizbet aterally. CONCLUSION: Persistent and unchanged infiltrates. Electronically signed by: Adis Gonzalez MD Board Certified Radiologist 04/08/2018 6:17 AM EST
--- NOTE | 2018-04-08 08:00 | P.DS ---
DS: Providers Date of admission: 04/01/18 14:40 Primary care physician: Minal Rainey MD Consults: 04/04/18 16:04 Consult to Pulmonology Routine Consulting Provider: Felicity Blevins Reason for Consultation: pna with chest contusion and rib fx. no improvement in oxygen need. please assist. Notified:: Office Spoke with:: Evan Date Notified:: 04/04/18 Time Notified:: 16:12 Ordering Provider: KALEIGH DS: Summary This is a 77-year-old male patient presented status post fall at home sustaining a lung contusion with right rib fractures and pneumonia with leukocytosis, tachypnea, patchy airspace disease on CT. Met sepsis criteria. Was placed on empirical antibiotics Rocephin and Zithromax. Blood cultures were negative. Patchy airspace disease of the left lung status post fall with trauma to bilateral back and immediate hemoptysis resulting in hypoxia. Patient sustained 10th and 11th right-sided rib fractures. Possible pulmonary contusion on the left. Was placed on supplemental O2, this is weaned to room air and doing well. He was treated for community-acquired pneumonia. Duo nebs pain control. Encourage incentive spirometer. Chest x-ray did show improvement although was still present. Pulmonary follow patient during hospitalization was discharged home to follow-up with pulmonary, may need bronchoscopy. Hemoptysis actually improved. Cough improved. Wean down to room air. Patient is stable to discharge home. Rx is written. Diet as tolerated. Activity as tolerated. Follow-up PCP and pulmonary. Repeat chest x -ray in 1 week. Time Spent with Patient Total time spent providing and/or coordinating discharge services: Quality: VTE Deep Vein Thrombosis/Pulmonary Embolism Present on Admission: No Exam Narrative Exam Narrative: GENERAL: Well-developed, well-nourished patient in NAD. Sitting on side of bed comfortably no apparent distress. SKIN: Warm and dry. No rash. HEAD: Normocephalic. Atraumatic. EYES: Pupils equal and round. No scleral icterus. No injection or drainage. ENT: No nasal bleeding or discharge. Mucous membranes pink and moist. NECK: Supple. Trachea midline. CARDIOVASCULAR: Regular rate and rhythm. S1, S2 noted. No murmur appreciated. RESPIRATORY: No accessory muscle use. Clear to auscultation. Breath sounds equal bilaterally. GASTROINTESTINAL: Abdomen soft, non-tender, nondistended. Normoactive bowel sounds x4. MUSCULOSKELETAL: No obvious deformities. Extremities without clubbing, cyanosis , or edema. NEUROLOGICAL: Awake and alert. No obvious cranial nerve deficits. Motor grossly within normal limits. 5/5 muscle strength in bilateral upper and lower extremities. Normal speech. PSYCHIATRIC: Appropriate mood and affect; insight and judgment normal. Results Labs on day of discharge: Labs from last 24 hours 04/07/18 04/07/18 06:42 06:42 CBC w Diff Auto diff final WBC 8.3 RBC 4.29 L Hgb 12.6 L Hct 37.2 L MCV 86.7 MCH 29.3 MCHC 33.8 RDW 14.3 Plt Count 187 D MPV 9.6 Neut % (Auto) 65.2 Lymph % (Auto) 18.5 Mcintosh % (Auto) 12.0 H Eos % (Auto) 3.4 Baso % (Auto) 0.9 Neut # (Auto) 5.4 Lymph # (Auto) 1.5 Mcintosh # (Auto) 1.0 H Eos # (Auto) 0.3 Baso # (Auto) 0.1 WBC Differential . Differential Comment . Total Bilirubin 0.5 Alkaline Phosphatase 143 H Total Protein 7.0 D Impressions ITS Impressions Abdomen/Pelvis CT 04/01/18 11:40 CONCLUSION: 1. Mildly displaced right posterior 10th and 11th rib fractures without hemopneumothorax or pneumothorax. 2. Patchy airspace disease left lung base most characteristic of pneumonia or aspiration. 3. Previous cholecystectomy. Mild fatty liver. No acute traumatic injury identified within the abdomen and pelvis. Cervical Spine CT 04/01/18 11:40 CONCLUSION: 1. At C2-3 there is a left paracentral disc protrusion with left lateral recess stenosis. 2. Degenerative changes as above in the remainder of the cervical spine with previous fusion at C5-6-7 with anterior plate and screw fixation. 3. No acute fracture or spondylolisthesis. 4. Previous surgery in the left auditory canal and mastoid region with abnormal soft tissue in the area of the mastoids. Head CT 04/01/18 11:40 CONCLUSION: 1. No acute findings. Chronic moderate white matter ischemic changes. Implanted device just external to left parietal calvarium. . . Chest CT 04/01/18 11:43 CONCLUSION: 1. Mildly displaced fractures through the right 10th and 11th ribs posteriorly without pneumothorax or hemothorax. 2. Patchy airspace disease in the contralateral left lung. Primary differential diagnosis includes aspiration and pneumonia. Contusion less likely. 3. Old healed sternal fracture. No mediastinal hematoma. Lumbar Spine CT 04/01/18 11:43 CONCLUSION: 1. No acute bony abnormalities within the lumbar spine. Degenerative changes as above. Thoracic Spine CT 04/01/18 11:43 CONCLUSION: 1. Right posterior 10th and 11th rib fractures. No thoracic spine fracture or subluxation. Knee X-Ray 04/01/18 11:47 CONCLUSION: Moderate osteoarthritis. No acute bony abnormality. Chest X-Ray 04/08/18 06:00 CONCLUSION: Persistent and unchanged infiltrates. Discharge Plan Discharge Disposition Patient Disposition: Discharge Home Discharge Condition Condition: Stable Discharge Order Discharge Orders: Discharge Order (Routine); Ordered 04/08/18 Ordered By: Maura Mai Discharge Details Anticipated Discharge Date: 04/08/18 Diagnosis: Pneumonia, Hypoxia, CHI (closed head injury), Closed rib fracture Physicians Team ED Provider: Margaret Palomo Primary Care Provider: Minal Rainey Attending Provider: Ulisses Webb Other Providers: Felicity Blevins Rxs /Orders / Referrals /Forms Prescriptions: New metoprolol succinate 50 mg Tablet Extended Release 24 Hr 50 mg PO BID Qty: 60 RF: 0 acidophilus-sporogenes [Acidophilus Ex Str (L. sporog)] 35 million- 25 million cell Tablet 1 tab PO TID Qty: 21 RF: 0 doxycycline hyclate 100 mg capsule 100 mg PO DAILY Qty: 10 RF: 0 amlodipine [Norvasc] 10 mg Tablet 10 mg PO DAILY Qty: 30 RF: 0 Continue Aspir-81 1 tab PO DAILY RF: 0 Lantoprost 1 drop ophthalmic (eye) HS RF: 0 omeprazole 40 mg PO DAILY RF: 0 Alreds 1 tab PO BID RF: 0 ascorbic acid (vitamin C) [Vitamin C] 1,000 mg Tablet 500 mg PO BID RF: 0 tamsulosin [Flomax] 0.4 mg Capsule 0.4 mg PO DAILY RF: 0 coenzyme Q10 [CoQ-10] 100 mg Capsule 300 mg PO DAILY RF: 0 cholecalciferol (vitamin D3) [Vitamin D3] 1,000 unit Tablet 1,000 unit PO DAILY RF: 0 vit [id number] [B Complex] 1.7-20-2-1.2 mg/mL Liquid 1 tab Sublingual RF: 0 pvabh-[id number]-[id number]-fish oil [Herman-3 Fish Oil] 300-1,000 mg Capsule 1,200 mg PO DAILY RF: 0 Tumeric 1,500 mg PO QID RF: 0 Discontinued metoprolol succinate 50 mg PO BID RF: 0 Ambulatory Orders / Order Sets / DME: XR chest 1V single AP (Routine) Timeframe: 1 Week Location: Determined by Patient Ordered By: Maura Mai Referrals: Minal Rainey MD [Primary Care Provider] - 04/11/18 12:00 am ( Please call the physician's office to book the appointment to be seen within [].) Felicity Blevins MD [Physician] - 04/16/18 12:00 am Discharge Instructions Patient Printed Instructions: Amlodipine (By mouth), Community Acquired Pneumonia (GEN) Additional Instructions: Heart Healthy Diet. Activity as tolerated. Return with any acute changes. Follow up with primary care doctor in a week, call for appointment. Post Discharge Care Plan Care Plan Goals: Your Health Problems: Goals to Promote Your Health: * To prevent worsening of your condition * To maintain your health at the optimal level Directions to Meet Your Goals: * Take your medications as prescribed * Follow your dietary instruction * Follow activity as directed * Keep your appointments as scheduled * Take your immunizations and boosters as scheduled * If your symptoms worsen call your PCP * If no PCP go to Urgent Care or Emergency Room Smoking is dangerous to your health. Avoid second hand smoke. You may reach the 24-hour crisis hotline for domestic abuse at . Discharge Interventions Interventions: Discharge Planning - Case Management Last Done: 04/08/18 09:32 Status ED Status: Left Department Discharge Information Discharge Date/Time: 04/08/18 10:06
[2018-04-08] MEDS: Lactobacillus Acidophilus/L. Spores Tablet PO SCH (09:00)
[2018-04-08] MEDS: amLODIPine 10 MG Tablet PO SCH (09:01)
[2018-04-08] MEDS: guaiFENesin 600 MG ER Tablet PO SCH (09:01)
== END 2018-04-08 10:06 | disposition home or self-care (01) | DRG 871 ==
LOC: PHED 10:55 → PHEDA 14:40 → PH3 15:28
PROVIDERS: ADMIT Hospitalist; ATTEND Hospitalist
CPT/HCPCS: 36600; 70450; 71010; 71020; 71045; 71046; 71260; 72125; 72129; 72132; 73564; 74177; 80048; 80053; 82805; 85025; 85027; 87040; 90765; 90775; 94150; 94618; 94620; 94664; 96365; 96375; 97110; 97116; 97162; 97166; 97535; 99285; J0456; J0696; J2270; J7030; J7050; Q9967